=== PATIENT | male | born 1965 | race Caucasian/White ===

== ENCOUNTER 2018-02-22 12:14 | Inpatient (IN) | payer MEDICARE, MEDICAID ==
[2018-02-22] MEDS ORDERED: Ipratropium Neb 0.5 mg/2.5 mL UD HHN PRN (12:49)
[2018-02-22] MEDS ORDERED: Magnesium Hydroxide (MOM) 30 mL UDC PO PRN (12:49)
[2018-02-22] MEDS ORDERED: Sodium Chloride 0.9% 1,000 ML IV ONE (13:05)
--- NOTE | 2018-02-22 13:10 | ED Physician Chart ---
ED Chief Complaint/HPI - Patient Information Date Seen:: 02/22/18 Time Seen:: 12:45 Chief Complaint:: Weakness History of Present Illness:: onset x one day of weakness, dizziness, N/V, and vertigo; no report of trauma, H /As, neck pain, cough, C/P, SOB, Abd. Pain, A/D/C, fever, chills, or urinary s/s Allergies:: Allergies Allergy/AdvReac Type Severity Reaction Status Date / Time bee stings Allergy Unknown Uncoded 12/18/12 10:59 Vitals:: Vital Signs - 8 hr 02/22/18 12:46 Temp 98.3 F HR 93 RR 16 BP 102/64 O2 Sat % 96 Historian:: Patient, EMS Review:: Nurse's Note Reviewed, Old Chart Reviewed, EMS run form Reviewed ED Review of Systems - Review of Systems General/Constitutional: No fever, No chills, No weight loss, No weakness, No diaphoresis, No edema, No loss of appetite Skin: No skin lesions, No rash, No bruising Head: No headache, No light-headedness Eyes: No loss of vision, No pain, No diplopia ENT: No earache, No nasal drainage, No sore throat, No tinnitus Neck: No neck pain, No swelling, No thyromegaly, No stiffness, No mass noted Cardio Vascular: No chest pain, No palpitations, No PND, No orthopnea, No edema Pulmonary: No SOB, No cough, No sputum, No wheezing GI: Nausea, Vomiting, No pain, No melena, No hematochezia, No constipation, No hematemesis G/U: No dysuria, No frequency, No hematuria Musculoskeletal: No bone or joint pain, No back pain, No muscle pain Endocrine: No polyuria, No polydipsia Psychiatric: No prior psych history, No depression, No anxiety, No suicidal ideation, No homicidal ideation, No auditory hallucination, No visual hallucination Hematopoietic: No bruising, No lymphadenopathy Allergic/Immuno: No urticaria, No angioedema Neurological: No syncope, No focal symptoms, Weakness, No paresthesia, No headache, No seizure, Dizziness, Confusion, No vertigo ED Past Medical History - Past Medical History Obtainable: Yes Past Medical History: CVA/TIA, PUD/GERD, Arthritis, Dementia Family History: HTN Social History: Non Smoker, No Alcohol, No Drug Use, Single, Care Facility Surgical History: None Psychiatricy History: None Medication: Reviewed ED Physical Exam - Physical Examination General/Constitutional: Awake, Well-developed, well-nourished, Alert, No distress, GCS 15, Non-toxic appearing, Ambulatory Head: Atraumatic Eyes: Lids, conjuctiva normal, PERRL, EOMI Skin: Nl inspection, No rash, No skin lesions, No ecchymosis, Well hydrated, No lymphadenopathy ENMT: External ears, nose nl, TM canals nl, Nasal exam nl, Lips, teeth, gums nl , Oropharynx nl, Tonsils nl Neck: Nontender, Full ROM w/o pain, No JVD, No nuchal rigidity, No bruit, No mass, No stridor Respiratory: Nl effort/Exclusion, Clear to Auscultation, No Wheeze/Rhonchi/Rales Cardio Vascular: RRR, No murmur, gallop, rubs, NL S1 S2, Carotid/Femoral/Distal pulses equal bilaterally GI: No tenderness/rebounding/guarding, No organomegaly, No hernia, Normal BS's, Nondistended, No mass/bruits, No McBurney tenderness : No CVA tenderness Extremities: No tenderness or effusion, Full ROM, normal strength in all extremities, No edema, Normal digits & nails Neuro/Psych: Alert/oriented, DTR's symmetric, Normal sensory exam, Normal motor strength, Judgement/insight normal, Mood normal, Normal gait, No focal deficits Misc: Normal back, No paraspinal tenderness ED Labs/Radiology/EKG Results - Lab Results Comments:: U/A: + Pyuria - Radiology Results Comments:: NAD - EKG Interpretations EKG Time:: 13:24 Rate & Rhythm: 96; NSR Comments:: LVH; non-specific st-t changes ED Septic Shock - . Is Septic Shock (SBP<90, OR Lactate>4 mmol\L) present?: No - <6hrs of presentation: Vital Signs: Vital Signs - 8 hr 02/22/18 12:46 Temp 98.3 F HR 93 RR 16 BP 102/64 O2 Sat % 96 ED Reassessment (Disposition) - Reassessment Reassessment Condition:: Improved - Diagnosis Diagnosis:: Dx: Weakness; UTI; Sepsis; N/V; Gastritis; AGE: Dehydration - Aftercare/Follow up Instructions Aftercare/Follow-Up Instructions:: Counseled pt regarding lab results/diagnosis & need follow up, Counseled pt & family regarding lab results/diagnosis & need follow up - Patient Disposition Discharge/Transfer:: Acute Care w/in this hosp Accepting Physician:: Dr. Almanzar Time Called:: [id number] Time Responded:: 14:15 Admitted to:: Med/Surg Spoke to:: Dr. Almanzar Admitting Medical Physician:: Dr. Almanzar Condition at Disposition:: Stable, Improved
[2018-02-22 13:18] LABS: URINE MICROSCOPIC INDICATED? YES; URINE SOURCE CLEAN C
[2018-02-22 13:23] LABS: % EOSINOPHILS 3.4 % (0.0-5.0); % LYMPHOCYTES 19.5 % (20.0-50.0); % MONOCYTES 9.2 % (2.0-10.0); % NEUTROPHILS 67.9 % (40.0-80.0); EOSINOPHILE ABSOLUTE 0.3 Th/cmm (0.1-0.4); HEMATOCRIT 44.4 % (41.0-60); HEMOGLOBIN 14.5 gm/dL (12-16); LYMPHOCYTE ABSOLUTE 1.5 Th/cmm (1.5-3.0); MEAN CELL VOLUME 90.2 fl (80-99); MEAN CORPUSCULAR HEMOGLOBIN 29.5 pg (26.0-30.0); MEAN CORPUSCULAR HGB CONC 32.7 pg (28.0-36.0); MEAN PLATELET VOLUME 8.5 fl; MONOCYTE ABSOLUTE 0.7 Th/cmm (0.3-1.0); PLATELET COUNT 291 Th/cmm (150-400); RED BLOOD COUNT 4.92 Mil/cmm (4.30-5.70); RED CELL DISTRIBUTION WIDTH 12.7 % (11.5-20.0); WHITE BLOOD COUNT 7.5 Th/cmm (4.8-10.8)
[2018-02-22 13:32] LABS: URINE BILIRUBIN NEGATIVE (NEGATIVE); URINE BLOOD SMALL (NEGATIVE); URINE GLUCOSE (UA) NEGATIVE (NEGATIVE); URINE KETONE 15 mg/dL (NEGATIVE); URINE LEUKOCYTE ESTERASE SMALL (NEGATIVE); URINE NITRATE NEGATIVE (NEGATIVE); URINE PROTEIN TRACE mg/dL (NEGATIVE); URINE UROBILINOGEN 0.2 E.U./dL (0.2 - 1.0)
[2018-02-22 13:37] LABS: INR 1.05 (0.5-1.4); PROTHROMBIN TIME (TEST) 10.9 SECONDS (9.5-11.5)
[2018-02-22 13:43] LABS: ALB/GLOB RATIO 1.2 (1.0-1.8); ALBUMIN 4.2 gm/dL (4.2-5.5); ALKALINE PHOSPHATASE 94 U/L (34-104); ANION GAP 12.8 (7.0-16.0); BILIRUBIN,TOTAL 0.4 mg/dL (0.3-1.0); BUN - UREA NITROGEN 25 mg/dL (7-25); CARBON DIOXIDE 29.5 mEq/L (21.0-31.0); CHLORIDE 104 mEq/L (98-107); CHOLESTEROL 195 mg/dL (<200); CREATININE - SERUM 0.6 mg/dL (0.7-1.3); CREATININE KINASE 44 U/L (30-223); GFR AFRICAN-AMERICAN > 60.0 ml/min (>90); GFR NON AFRICAN-AMERICAN > 60.0 ml/min; GLUCOSE 90 mg/dL (70-105); HDL -HIGH DENSITY LIPOPROTEIN 56 mg/dL (23-92); POTASSIUM SERUM 4.3 mEq/L (3.5-5.1); SGOT 17 U/L (13-39); SGPT/ALT 18 U/L (7-52); SODIUM SERUM 142 mEq/L (136-145); TOTAL PROTEIN,SERUM 7.6 gm/dL (6.0-8.3); TRIGLYCERIDES 77 mg/dL (<150)
[2018-02-22 13:44] LABS: AMYLASE SERUM 60 U/L (29-103); LIPASE 20 U/L (11-82)
[2018-02-22 13:51] LABS: URINE CLARITY CLEAR (CLEAR); URINE COLOR YELLOW
[2018-02-22 13:54] LABS: URINE BACTERIA 4+ /hpf (NONE SEEN); URINE EPITHELIAL CELLS MODERATE /lpf (FEW)
[2018-02-22] MEDS ORDERED: cefTRIAXone 1 GM in Sodium Chloride 0.9% 50 ML IV ONE (14:11)
[2018-02-22] MEDS ORDERED: Lidocaine 2% 5mL Abboject IVP ONE ×2 (14:39→14:40)
--- NOTE | 2018-02-22 14:53 | History & Physical ---
ADMIT DATE: 02/22/2018 CHIEF COMPLAINT: Generalized weakness, nausea, and vomiting. HISTORY OF PRESENT ILLNESS: This is a 52-year-old male with history of mental retardation, cerebral palsy, and hypertension, comes with chronic constipation, admitted from Nursing Facility secondary to fever, chills, nausea, vomiting, not feeling well, not eating. The patient brought in the ER and admitted for further management. PAST MEDICAL HISTORY: As mentioned in history of present illness. PAST SURGICAL HISTORY: Unable to obtain from the patient. ALLERGIES: BEE STING. MEDICATIONS: Tylenol, Atrovent, Colace, amoxicillin, milk of magnesia, Pepcid, Os-Joesph, and vitamin D. FAMILY HISTORY: Noncontributory. SOCIAL HISTORY: The patient lives in intermediate. The patient requiring 24-hour total care. REVIEW OF SYSTEMS: This is limited secondary to patient's comatose. We will try to obtain more detailed review of system at a later date by talking to family members ____ number is [phone]. We will also try to get information from nursing staff at [facility] on number [phone] as well as from Dr. Locke. PHYSICAL EXAMINATION: VITAL SIGNS: Blood pressure 187/47, respiration 18, pulse 84, and temperature 98.3. GENERAL: Elderly male. NECK: Appears chronically ill. Bilateral temporal wasting. LUNGS: Equal breath sounds, few rhonchi. HEART: Regular rate and rhythm without appreciable murmur. ABDOMEN: Soft, globular. EXTREMITIES: Positive excoriation, atrophy contractures. NEUROLOGIC: Limited. LABORATORY DATA: WBC 7, hemoglobin 14, and platelets 291. Sodium 142, potassium 4.3, BUN 25, creatinine 0.6. UA ____ 4+ bacteria, positive nitrite and leukocyte esterase. ASSESSMENT AND PLAN: Urinary tract infection, failure to thrive, poor p.o. intake, dehydration, generalized weakness, mental retardation, cerebral palsy, hypertension. We will continue the patient on ____. We will follow the patient's urine C and S. Continue with current care. We will place the patient on aspiration precaution, deep vein thrombosis prophylaxis. JOB# [id number]
[2018-02-22] MEDS: D5-0.9%NS 1,000 ML IV SCH (17:01)
[2018-02-23] MEDS: D5-0.9%NS 1,000 ML IV SCH ×2 (03:20→18:33)
--- NOTE | 2018-02-23 04:28 | Consultation ---
DATE OF CONSULTATION: 02/22/2018 HISTORY OF PRESENT ILLNESS: This 52-year-old male was seen and examined at the courtesy of Dr. Almanzar. The patient was admitted here from snf with dehydration, UTI, dysphagia. The patient has history of multiple other problems including quadriplegia, contractures, seizures, microcephaly, mental retardation, history of congestive heart failure, anemia, history of rheumatic valvular disease, dysphagia, and urinary tract infection. No history available from the patient. PAST MEDICAL HISTORY, FAMILY HISTORY, SOCIAL HISTORY, REVIEW OF SYSTEMS: Not available from the patient. LABORATORY DATA: On reviewing the labs, urinalysis showed 25 WBCs, bacteria 4+. INR was 1.05, PTT 24.7, amylase 60, lipase 20. Sodium 142, potassium 4.3, chloride 104, CO2 29.5, BUN 90, creatinine 25. LDL cholesterol was 118, HDL 56, triglycerides 77, total cholesterol 195, CPK 44, troponin less than 0.01. Lactic acid 1.42. BNP 75.5. That is within normal limits. WBC 7.5, hemoglobin 14.5, hematocrit 44.4, platelet count is 291. Chest x-ray has shown sinus rhythm, PVC. Possible left atrial enlargement, possible LVH. PHYSICAL EXAMINATION: VITAL SIGNS: Heart rate was 83, blood pressure in the beginning was 148/100, then it came down to 98/63. SKIN: Normal. HEAD: Normocephalic. Eyes: Conjunctivae pink, no icterus in the eyes. Pupils reacting to light. NECK: There was no increased jugular venous distention, no thyromegaly, no lymphadenopathy. Carotids equal both sides. CHEST: Bilaterally symmetrical moved well with respiration. Respiratory movements equal both sides. Trachea is central. There is note to percussion. Breath sounds, few basilar rales. CARDIOVASCULAR SYSTEM: PMI not well localized. There is no positional thrill. No parasternal heave. S1 normal, S2 physiologic. Grade 2/6 ejection systolic murmur heard over the basal left sternal border. ABDOMEN: Soft, no tenderness, no rigidity, no guarding and no organomegaly. Bowel sounds normal. IMPRESSION: Dehydration, urinary tract infection, quadriplegia, seizures, microcephaly, mental retardation, congestive heart failure, anemia, history of rheumatic valvular disease or dysphagia. She will continue present management. Continue cardiac monitoring. PLAN: We will get a repeat EKG. We will get echocardiogram to evaluate left ventricular function and valvular structure and also get TSH. Further recommendation will be made depending on the list of the tests available. JOB# [id number]
[2018-02-23 06:54] LABS: CHOLESTEROL 168 mg/dL (<200); HDL -HIGH DENSITY LIPOPROTEIN 45 mg/dL (23-92); TRIGLYCERIDES 66 mg/dL (<150)
--- NOTE | 2018-02-23 08:05 | Diagnostic Imaging Report ---
CHEST X-RAY: AP view INDICATION: pain COMPARISON: None FINDINGS: Exam is limited due to body habitus and scoliosis. Multilevel spinal fixation hardware is noted. There is increased interstitial lung markings. No definite focal consolidation or effusions. Cardiomegaly is noted. Nonspecific gas-filled loops of bowel the left upper quadrant are noted. IMPRESSION: Limited exam due to body habitus and spinal scoliosis. There is increased interstitial lung markings. A mild degree of congestion cannot be excluded. No focal consolidation identified Postsurgical changes of the spine with severe scoliosis.
[2018-02-23] MEDS: Ferrous Sulfate 325 MG TAB PO SCH (09:36)
[2018-02-23] MEDS: cefTRIAXone 1 GM in Sodium Chloride 0.9% 50 ML IV SCH (09:50)
--- NOTE | 2018-02-23 14:57 | Internal Medicine Prog Note ---
Internal Medicine Subjective - Subjective Service Date: 02/23/18 (patient with speech therapist unable to tolerate swallowing patient vomits. Per nursing staff earlier this morning patient had x2 episodes of vomiting. ) Patient seen and examined:: with staff Patient is:: awake Per staff patient has:: poor oral intake Internal Medicine Objective - Results Result Diagrams: 02/22/18 12:55 02/22/18 12:55 Recent Labs: Laboratory Last Values WBC 7.5 Th/cmm (4.8-10.8) 02/22/18 12:55 RBC 4.92 Mil/cmm (4.30-5.70) 02/22/18 12:55 Hgb 14.5 gm/dL (12-16) 02/22/18 12:55 Hct 44.4 % (41.0-60) 02/22/18 12:55 MCV 90.2 fl (80-99) 02/22/18 12:55 MCH 29.5 pg (26.0-30.0) 02/22/18 12:55 MCHC Differential 32.7 pg (28.0-36.0) 02/22/18 12:55 RDW 12.7 % (11.5-20.0) 02/22/18 12:55 Plt Count 291 Th/cmm (150-400) 02/22/18 12:55 MPV 8.5 fl 02/22/18 12:55 Neutrophils % 67.9 % (40.0-80.0) 02/22/18 12:55 Lymphocytes % 19.5 % (20.0-50.0) L 02/22/18 12: Monocytes % 9.2 % (2.0-10.0) 02/22/18 12:55 Eosinophils % 3.4 % (0.0-5.0) 02/22/18 12: Basophils % 0.0 % (0.0-2.0) 02/22/18 12:55 PT 10.9 SECONDS (9.5-11.5) 02/22/18 12:55 INR 1.05 (0.5-1.4) 02/22/18 12:55 PTT (Actin FS) 24.7 SECONDS (26.0-38.0) L 02/22/18 12:55 Sodium 142 mEq/L (136-145) 02/22/18 12:55 Potassium 4.3 mEq/L (3.5-5.1) 02/22/18 12:55 Chloride 104 mEq/L (98-107) 02/22/18 12:55 Carbon Dioxide 29.5 mEq/L (21.0-31.0) 02/22/18 12:55 Anion Gap 12.8 (7.0-16.0) 02/22/18 12:55 BUN 25 mg/dL (7-25) 02/22/18 12:55 Creatinine 0.6 mg/dL (0.7-1.3) L 02/22/18 12:55 Est GFR ( Amer) > 60.0 ml/min (>90) 02/22/18 12:55 Est GFR (Non-Af Amer) > 60.0 ml/min 02/22/18 12:55 BUN/Creatinine Ratio 41.7 02/22/18 12:55 Glucose 90 mg/dL (70-105) 02/22/18 12:55 Whole Bld Lactic Acid 1.42 mmol/L (0.60-1.99) 02/22/18 12:55 Calcium 10.0 mg/dL (8.6-10.3) 02/22/18 12:55 Total Bilirubin 0.4 mg/dL (0.3-1.0) 02/22/18 12:55 AST 17 U/L (13-39) 02/22/18 12:55 ALT 18 U/L (7-52) 02/22/18 12:55 Alkaline Phosphatase 94 U/L (34-104) 02/22/18 12:55 Creatine Kinase 44 U/L (30-223) 02/22/18 12:55 Troponin I < 0.01 ng/mL (0.01-0.05) L 02/22/18 12:55 B-Natriuretic Peptide 75.5 pg/mL (5.0-100.0) 02/22/18 12:55 Total Protein 7.6 gm/dL (6.0-8.3) 02/22/18 12:55 Albumin 4.2 gm/dL (4.2-5.5) 02/22/18 12:55 Globulin 3.4 gm/dL 02/22/18 12:55 Albumin/Globulin Ratio 1.2 (1.0-1.8) 02/22/18 12:55 Triglycerides 66 mg/dL (<150) 02/23/18 05:50 Cholesterol 168 mg/dL (<200) 02/23/18 05:50 LDL Cholesterol Direct 103 mg/dL (75-193) 02/23/18 05:50 HDL Cholesterol 45 mg/dL (23-92) 02/23/18 05:50 Amylase 60 U/L (29-103) 02/22/18 12:55 Lipase 20 U/L (11-82) 02/22/18 12:55 TSH 0.66 uIU/ml (0.34-5.60) 02/23/18 05:50 Urine Source CLEAN C 02/22/18 13:00 Urine Color YELLOW 02/22/18 13:00 Urine Clarity CLEAR (CLEAR) 02/22/18 13:00 Urine pH 6.0 (4.6 - 8.0) 02/22/18 13:00 Ur Specific Mineral 1.025 (1.005-1.030) 02/22/18 13:00 Urine Protein TRACE mg/dL (NEGATIVE) 02/22/18 13:00 Urine Glucose (UA) NEGATIVE mg/dL (NEGATIVE) 02/22/18 13:00 Urine Ketones 15 mg/dL (NEGATIVE) H 02/22/18 13:00 Urine Blood SMALL (NEGATIVE) H 02/22/18 13:00 Urine Nitrate NEGATIVE (NEGATIVE) 02/22/18 13:00 Urine Bilirubin NEGATIVE (NEGATIVE) 02/22/18 13:00 Urine Urobilinogen 0.2 E.U./dL (0.2 - 1.0) 02/22/18 13:00 Ur Leukocyte Esterase SMALL (NEGATIVE) H 02/22/18 13:00 Urine RBC 2-5 /hpf (0-5) H 02/22/18 13:00 Urine WBC 10-25 /hpf (0-5) H 02/22/18 13:00 Ur Epithelial Cells MODERATE /lpf (FEW) 02/22/18 13:00 Urine Bacteria 4+ /hpf (NONE SEEN) H 02/22/18 13:00 - Physical Exam Vitals and I&O: Vital Signs Temp 100.7 F 02/23/18 08:00 Pulse 96 02/23/18 09:37 Resp 18 02/23/18 08:00 BP 113/60 02/23/18 09:37 Pulse Ox 96 02/23/18 08:00 Intake & Output 02/22/18 02/23/18 02/23/18 18:59 06:59 18:59 Intake Total 885.333 50 Output Total 0 Balance 885.333 50 Weight (lbs) 133 lb 11.2 oz Intake: Intake, IV Amount 825.333 50 D5-0.9%Ns 1,000 ml @ 80 825.333 mls/hr IV .[id number] [facility] Rx #:[id number] cefTRIAXone 1 gm In 50 Sodium Chloride 0.9% 50 ml @ 100 mls/hr IV Q24HR [facility] Rx#:[id number] Oral 0 Other 60 Output: Stool 0 Other: # Voids 3 # Bowel Movements 0 Weight Source Bedscale Active Medications: Current Medications Acetaminophen (Tylenol) 650 mg PO Q4HR PRN PRN Reason: Pain or Fever >101 Last Admin: 02/23/18 09:35 Dose: 650 mg Albuterol/Ipratropium (Duoneb Neb) 3 ml HHN Q4HRT [facility] Stop: 04/24/18 14:59 Aspirin (Ecotrin) 81 mg PO DAILY [facility] Stop: 04/24/18 08:59 Last Admin: 02/23/18 09:36 Dose: 81 mg Calcium Carbonate (Os-Joesph) 500 mg PO TID [facility] Stop: 04/23/18 13:59 Last Admin: 02/23/18 14:54 Dose: Not Given Docusate Sodium (Colace) 250 mg PO BID [facility] Stop: 04/23/18 16:59 Last Admin: 02/23/18 09:36 Dose: 250 mg Enalapril Maleate (Vasotec) 20 mg PO BID [facility] Stop: 04/23/18 16:59 Last Admin: 02/23/18 09:37 Dose: Not Given Famotidine (Pepcid) 20 mg PO BID [facility] Stop: 04/23/18 16:59 Last Admin: 02/23/18 09:36 Dose: 20 mg Ferrous Sulfate (Iron) 325 mg PO DAILY [facility] Stop: 04/24/18 08:59 Last Admin: 02/23/18 09:36 Dose: 325 mg Ceftriaxone Sodium 1 gm/ (Sodium Chloride) 50 mls @ 100 mls/hr IV Q24HR [facility] Stop: 04/24/18 08:59 Last Infusion: 02/23/18 11:26 Dose: Infused Dextrose/Sodium Chloride (D5-0.9%Ns) 1,000 mls @ 80 mls/hr IV .[id number] [facility] Stop: 04/23/18 14:14 Last Admin: 02/23/18 03:20 Dose: 80 mls/hr Ipratropium [place] (Atrovent Neb 0.5mg/2.5ml) 0.5 mg HHN Q8HRT PRN PRN Reason: Shortness of Breath Stop: 04/23/18 12:48 Magnesium Hydroxide (Milk Of Magnesia) 30 ml PO BID PRN PRN Reason: Constipation Stop: 04/23/18 12:48 Ondansetron HCl (Zofran) 4 mg IV Q8H PRN PRN Reason: Nausea / Vomiting Stop: 04/24/18 14:53 Pantoprazole Sodium (Protonix) 40 mg IVP DAILY [facility] Stop: 04/25/18 08:59 Vitamin D (Vitamin D) 400 iu PO DAILY [facility] Stop: 04/24/18 08:59 Last Admin: 02/23/18 09:36 Dose: 400 iu General: weak, alert (nonverbal) HEENT: NC/AT, PERRLA Neck: Supple Lungs: congested Cardiovascular: RRR, Normal S1, Normal S2, without murmur Abdomen: non-tender, positive bowel sound Extremities: excoriation Neurological: unable to follow command - Procedures Procedures: Procedures Procedure Code Date APPLICATION LOWER LEG SPLINT 43185 02/28/05 APPLICATION OF SPLINT 93.54 02/28/05 INSERT PICC CATH [id number] 03/08/10 VENOUS CATHETERIZATION NEC 38.93 03/08/10 Internal Medicine Assmt/Plan - Assessment Assessment: acute uti failure to thrive poor oral intake acute dehydration intractable vomiting generalized weakness MR cp htn - Plan Plan: keep NPO for now except meds KUB to be done will add protonix aspiration precautions cbc/bmp in am continue current plan of care
[2018-02-23] MEDS: Albuterol/Ipratropium Neb 3 ML AERS HHN SCH ×3 (15:04→22:12)
[2018-02-24] MEDS: Albuterol/Ipratropium Neb 3 ML AERS HHN SCH ×6 (03:41→22:27)
[2018-02-24] MEDS: D5-0.9%NS 1,000 ML IV SCH (06:35)
[2018-02-24 06:41] LABS: ANION GAP 9.3 (7.0-16.0); BUN - UREA NITROGEN 19 mg/dL (7-25); CARBON DIOXIDE 28.1 mEq/L (21.0-31.0); CHLORIDE 112 mEq/L (98-107); CREATININE - SERUM 0.5 mg/dL (0.7-1.3); GFR AFRICAN-AMERICAN > 60.0 ml/min (>90); GFR NON AFRICAN-AMERICAN > 60.0 ml/min; GLUCOSE 106 mg/dL (70-105); MAGNESIUM 1.9 mg/dL (1.9-2.7); PHOSPHOROUS 2.3 mg/dL (2.5-5.0); POTASSIUM SERUM 3.4 mEq/L (3.5-5.1); SODIUM SERUM 146 mEq/L (136-145)
[2018-02-24 06:53] LABS: % BASOPHILS 0.1 % (0.0-2.0); % EOSINOPHILS 2.1 % (0.0-5.0); % LYMPHOCYTES 12.5 % (20.0-50.0); % MONOCYTES 10.1 % (2.0-10.0); % NEUTROPHILS 75.2 % (40.0-80.0); EOSINOPHILE ABSOLUTE 0.1 Th/cmm (0.1-0.4); HEMATOCRIT 36.8 % (41.0-60); HEMOGLOBIN 11.9 gm/dL (12-16); LYMPHOCYTE ABSOLUTE 0.8 Th/cmm (1.5-3.0); MEAN CELL VOLUME 89.6 fl (80-99); MEAN CORPUSCULAR HEMOGLOBIN 28.9 pg (26.0-30.0); MEAN CORPUSCULAR HGB CONC 32.2 pg (28.0-36.0); MEAN PLATELET VOLUME 8.6 fl; MONOCYTE ABSOLUTE 0.7 Th/cmm (0.3-1.0); NEUTROPHILE ABSOLUTE 5.1 Th/cmm (1.8-8.0); PLATELET COUNT 213 Th/cmm (150-400); RED BLOOD COUNT 4.11 Mil/cmm (4.30-5.70); RED CELL DISTRIBUTION WIDTH 12.5 % (11.5-20.0); WHITE BLOOD COUNT 6.7 Th/cmm (4.8-10.8)
--- NOTE | 2018-02-24 07:48 | Diagnostic Imaging Report ---
Portable chest x-ray HISTORY: Shortness of breath Compared with prior exam of February 22, 2018, there is marked cardiomegaly. There does appear to be degree of pulmonary vascular redistribution consistent with cardiac decompensation. No focal processes are seen. Again noted is a severe scoliosis and surgical changes. IMPRESSION: 1. Persistent marked cardiomegaly along with changes suggesting a degree of congestive heart failure. No jackson pulmonary edema or other focal processes.
--- NOTE | 2018-02-24 07:52 | Diagnostic Imaging Report ---
KUB abdominal film HISTORY: Pain The exam demonstrates several mildly dilated loops of bowel of questionable significance. No free intraperitoneal air. Shipley rods traverse the spine along with a scoliosis and degenerative changes. IMPRESSION: 1. Nonspecific bowel gas pattern
[2018-02-24] MEDS: Ferrous Sulfate 325 MG TAB PO SCH (09:18)
[2018-02-24] MEDS: cefTRIAXone 1 GM in Sodium Chloride 0.9% 50 ML IV SCH (09:18)
[2018-02-24] MEDS ORDERED: Potassium Chloride 20 mEq ER Tab PO ONE (13:10)
--- NOTE | 2018-02-24 13:10 | Internal Medicine Prog Note ---
Internal Medicine Subjective - Subjective Service Date: 02/24/18 (no episodes of any vomiting today) Patient seen and examined:: with staff Patient is:: awake Per staff patient has:: poor oral intake, tolerating meds Internal Medicine Objective - Results Result Diagrams: 02/24/18 05:40 02/24/18 05:40 Recent Labs: Laboratory Last Values WBC 6.7 Th/cmm (4.8-10.8) 02/24/18 05:40 RBC 4.11 Mil/cmm (4.30-5.70) L 02/24/18 05:40 Hgb 11.9 gm/dL (12-16) L 02/24/18 05:40 Hct 36.8 % (41.0-60) L 02/24/18 05:40 MCV 89.6 fl (80-99) 02/24/18 05:40 MCH 28.9 pg (26.0-30.0) 02/24/18 05:40 MCHC Differential 32.2 pg (28.0-36.0) 02/24/18 05:40 RDW 12.5 % (11.5-20.0) 02/24/18 05:40 Plt Count 213 Th/cmm (150-400) 02/24/18 05:40 MPV 8.6 fl 02/24/18 05:40 Neutrophils % 75.2 % (40.0-80.0) 02/24/18 05:40 Lymphocytes % 12.5 % (20.0-50.0) L 02/24/18 05:40 Monocytes % 10.1 % (2.0-10.0) H 02/24/18 05:40 Eosinophils % 2.1 % (0.0-5.0) 02/24/18 05:40 Basophils % 0.1 % (0.0-2.0) 02/24/18 05:40 PT 10.9 SECONDS (9.5-11.5) 02/22/18 12:55 INR 1.05 (0.5-1.4) 02/22/18 12:55 PTT (Actin FS) 24.7 SECONDS (26.0-38.0) L 02/22/18 12:55 Sodium 146 mEq/L (136-145) H 02/24/18 05:40 Potassium 3.4 mEq/L (3.5-5.1) L 02/24/18 05:40 Chloride 112 mEq/L (98-107) H 02/24/18 05:40 Carbon Dioxide 28.1 mEq/L (21.0-31.0) 02/24/18 05:40 Anion Gap 9.3 (7.0-16.0) 02/24/18 05:40 BUN 19 mg/dL (7-25) 02/24/18 05:40 Creatinine 0.5 mg/dL (0.7-1.3) L 02/24/18 05:40 Est GFR ( Amer) > 60.0 ml/min (>90) 02/24/18 05:40 Est GFR (Non-Af Amer) > 60.0 ml/min 02/24/18 05:40 BUN/Creatinine Ratio 38.0 02/24/18 05:40 Glucose 106 mg/dL (70-105) H 02/24/18 05:40 Whole Bld Lactic Acid 1.42 mmol/L (0.60-1.99) 02/22/18 12:55 Calcium 9.0 mg/dL (8.6-10.3) 02/24/18 05:40 Phosphorus 2.3 mg/dL (2.5-5.0) L 02/24/18 05:40 Magnesium 1.9 mg/dL (1.9-2.7) 02/24/18 05:40 Total Bilirubin 0.4 mg/dL (0.3-1.0) 02/22/18 12:55 AST 17 U/L (13-39) 02/22/18 12:55 ALT 18 U/L (7-52) 02/22/18 12:55 Alkaline Phosphatase 94 U/L (34-104) 02/22/18 12:55 Creatine Kinase 44 U/L (30-223) 02/22/18 12:55 Troponin I < 0.01 ng/mL (0.01-0.05) L 02/22/18 12:55 B-Natriuretic Peptide 120.0 pg/mL (5.0-100.0) H 02/24/18 05:40 Total Protein 7.6 gm/dL (6.0-8.3) 02/22/18 12:55 Albumin 4.2 gm/dL (4.2-5.5) 02/22/18 12:55 Globulin 3.4 gm/dL 02/22/18 12:55 Albumin/Globulin Ratio 1.2 (1.0-1.8) 02/22/18 12:55 Triglycerides 66 mg/dL (<150) 02/23/18 05:50 Cholesterol 168 mg/dL (<200) 02/23/18 05:50 LDL Cholesterol Direct 103 mg/dL (75-193) 02/23/18 05:50 HDL Cholesterol 45 mg/dL (23-92) 02/23/18 05:50 Amylase 60 U/L (29-103) 02/22/18 12:55 Lipase 20 U/L (11-82) 02/22/18 12:55 TSH 0.66 uIU/ml (0.34-5.60) 02/23/18 05:50 Urine Source CLEAN C 02/22/18 13:00 Urine Color YELLOW 02/22/18 13:00 Urine Clarity CLEAR (CLEAR) 02/22/18 13:00 Urine pH 6.0 (4.6 - 8.0) 02/22/18 13:00 Ur Specific [place] 1.025 (1.005-1.030) 02/22/18 13:00 Urine Protein TRACE mg/dL (NEGATIVE) 02/22/18 13:00 Urine Glucose (UA) NEGATIVE mg/dL (NEGATIVE) 02/22/18 13:00 Urine Ketones 15 mg/dL (NEGATIVE) H 02/22/18 13:00 Urine Blood SMALL (NEGATIVE) H 02/22/18 13:00 Urine Nitrate NEGATIVE (NEGATIVE) 02/22/18 13:00 Urine Bilirubin NEGATIVE (NEGATIVE) 02/22/18 13:00 Urine Urobilinogen 0.2 E.U./dL (0.2 - 1.0) 02/22/18 13:00 Ur Leukocyte Esterase SMALL (NEGATIVE) H 02/22/18 13:00 Urine RBC 2-5 /hpf (0-5) H 02/22/18 13:00 Urine WBC 10-25 /hpf (0-5) H 02/22/18 13:00 Ur Epithelial Cells MODERATE /lpf (FEW) 02/22/18 13:00 Urine Bacteria 4+ /hpf (NONE SEEN) H 02/22/18 13:00 - Physical Exam Vitals and I&O: Vital Signs Temp 98.3 F 02/24/18 08:00 Pulse 87 02/24/18 12:33 Resp 18 02/24/18 12:33 BP 130/48 02/24/18 09:19 Pulse Ox 99 02/24/18 12:33 Intake & Output 02/23/18 02/24/18 02/24/18 18:59 06:59 18:59 Intake Total 1530 962.667 Balance 1530 962.667 Weight (lbs) 133 lb 11.2 oz 142 lb 12.8 oz Intake: Intake, IV Amount 1050 962.667 D5-0.9%Ns 1,000 ml @ 80 1000 962.667 mls/hr IV .[id number] [facility] Rx #:[id number] cefTRIAXone 1 gm In 50 Sodium Chloride 0.9% 50 ml @ 100 mls/hr IV Q24HR [facility] Rx#:[id number] Oral 480 Other: # Voids 4 1 # Bowel Movements 0 Weight Source Estimated Bedscale Active Medications: Current Medications Acetaminophen (Tylenol) 650 mg PO Q4HR PRN PRN Reason: Pain or Fever >101 Last Admin: 02/23/18 09:35 Dose: 650 mg Albuterol/Ipratropium (Duoneb Neb) 3 ml HHN Q4HRT [facility] Stop: 04/24/18 14:59 Last Admin: 02/24/18 12:33 Dose: 3 ml Aspirin (Ecotrin) 81 mg PO DAILY [facility] Stop: 04/24/18 08:59 Last Admin: 02/24/18 09:25 Dose: 81 mg Calcium Carbonate (Os-Tangela) 500 mg PO TID [facility]I Stop: 04/23/18 13:59 Last Admin: 02/24/18 09:19 Dose: 500 mg Docusate Sodium (Colace) 250 mg PO BID [facility] Stop: 04/23/18 16:59 Last Admin: 02/24/18 09:18 Dose: 250 mg Enalapril Maleate (Vasotec) 20 mg PO BID [facility] Stop: 04/23/18 16:59 Last Admin: 02/24/18 09:19 Dose: Not Given Famotidine (Pepcid) 20 mg PO BID [facility] Stop: 04/23/18 16:59 Last Admin: 02/24/18 09:18 Dose: 20 mg Ferrous Sulfate (Iron) 325 mg PO DAILY [facility] Stop: 04/24/18 08:59 Last Admin: 02/24/18 09:18 Dose: 325 mg Ceftriaxone Sodium 1 gm/ (Sodium Chloride) 50 mls @ 100 mls/hr IV Q24HR [facility] Stop: 04/24/18 08:59 Last Admin: 02/24/18 09:18 Dose: 100 mls/hr Dextrose/Sodium Chloride (D5-0.9%Ns) 1,000 mls @ 80 mls/hr IV .[id number] [facility] Stop: 04/23/18 14:14 Last Admin: 02/24/18 06:35 Dose: 80 mls/hr Ipratropium [place] (Atrovent Neb 0.5mg/2.5ml) 0.5 mg HHN Q8HRT PRN PRN Reason: Shortness of Breath Stop: 04/23/18 12:48 Magnesium Hydroxide (Milk Of Magnesia) 30 ml PO BID PRN PRN Reason: Constipation Stop: 04/23/18 12:48 Ondansetron HCl (Zofran) 4 mg IV Q8H PRN PRN Reason: Nausea / Vomiting Stop: 04/24/18 14:53 Pantoprazole Sodium (Protonix) 40 mg IVP DAILY [facility] Stop: 04/25/18 08:59 Last Admin: 02/24/18 09:19 Dose: 40 mg Vitamin D (Vitamin D) 400 iu PO DAILY [facility] Stop: 04/24/18 08:59 Last Admin: 02/24/18 09:18 Dose: 400 iu General: weak, alert (nonverbal) HEENT: NC/AT, PERRLA Neck: Supple Lungs: congested Cardiovascular: RRR, Normal S1, Normal S2, without murmur Abdomen: non-tender, positive bowel sound Extremities: excoriation Neurological: unable to follow command - Procedures Procedures: Procedures Procedure Code Date APPLICATION LOWER LEG SPLINT 69192 02/28/05 APPLICATION OF SPLINT 93.54 02/28/05 INSERT PICC CATH 61392 03/08/10 VENOUS CATHETERIZATION NEC 38.93 03/08/10 Internal Medicine Assmt/Plan - Assessment Assessment: acute uti failure to thrive poor oral intake acute dehydration intractable vomiting generalized weakness MR cp htn - Plan Plan: continue with ppi supplemental oxygen and inhalation tx aspiration precautions cbc/bmp in am continue current plan of care Nutritional Asmnt/Malnutr-PDOC - Dietary Evaluation Malnutrition Findings (Please click <Entered> for more info): Nutritional Asmnt/Malnutrition Start: 02/23/18 15: 18 Text: Status: Complete Freq: Document 02/23/18 15:18 LCAVERYG (Rec: 02/23/18 15:26 LCHENG [email or web address]) Nutritional Asmnt/Malnutrition Patient General Information Nutritional Screening High Risk Diagnosis dehydration, FTT, UTI Pertinent Medical Hx/Surgical Hx mental retardation, cerebral palsy, HTN, chronic constipation Subjective Information Per H&P, pt had N/V, not eating for few days. Per [employer] OB[employer] CONSULTANT, pt had emesis during meals. pt failed swallow eval and now on NPO. Pt seen lyin in bed at time of visit, not able to communicate. Current Diet Order/ Nutrition Support NPO Pertinent Medications os-tangela, D5-0.9%ns, colace, iron, protonix, vit D Pertinent Labs 02/22 Cr 0.6 Nutritional Hx/Data Height 5 ft 7 in Height (Calculated Centimeters) 170.2 Current Weight (lbs) 134 lb Weight (Calculated Kilograms) 60.8 Weight (Calculated Grams) 51233.4 [place] Body Weight 148 Body Mass Index (BMI) 20.9 Weight Status Approriate GI Symptoms GI Symptoms Vomitting Last BM 0 Difficult in: None Skin Integrity/Comment: rash Current %PO Poor (25-49%) Estimated Nutritional Goals BEE in Kcals: Using Current wt Calories/Kcals/Kg 25-30 Kcals Calculated 6397-8235 Protein: Using Current wt Protein g/k-1.2 Protein Calculated 61-73 Fluid: ml 1525-1830ml (1ml/kcal) Nutritional Problem 1. Problem Problem inadequate food intake Etiology pt vomiting food Signs/Symptoms: PO intake<50% and pt now on NPO Malnutrition Alert Protein-Calorie Malnutrition N/A Is there a minimum of two criteria No selected? Query Text:Check all the applicable criteria. A minimum of two criteria are recommended for diagnosis of either severe or non-severe malnutrition. Intervention/Recommendation Comments 1. Monitor NPO status. Consider alternative nutrition route to meet nutritional needs. 2. Monitor wt, labs and skin integrity 3. F/U as high risk in 2 days, 02/25 Expected Outcomes/Goals Expected Outcomes/Goals 1. Pt to meet at least 75% of nutritional needs. 2. Wt stability, skin to remain intact, labs to approach WNL.
[2018-02-24] MEDS ORDERED: Fleet Enema 135 mL RC PRN (13:14)
[2018-02-24] MEDS ORDERED: D5-0.45NS 1,000 ML IV SCH (13:15)
[2018-02-24] MEDS ORDERED: LACTOBACILLUS ACIDOPHILUS PO SCH (14:00)
[2018-02-24] MEDS: Lactobacillus Rhamnosus GG 15 Billion CFU CAP.SPRINK PO SCH ×2 (15:11→20:34)
[2018-02-25] MEDS: Albuterol/Ipratropium Neb 3 ML AERS HHN SCH ×4 (02:48→15:18)
[2018-02-25 06:27] LABS: EOSINOPHILE ABSOLUTE 0.2 Th/cmm (0.1-0.4); HEMATOCRIT 35.3 % (41.0-60); HEMOGLOBIN 11.7 gm/dL (12-16); LYMPHOCYTE ABSOLUTE 0.9 Th/cmm (1.5-3.0); MEAN CELL VOLUME 89.8 fl (80-99); MEAN CORPUSCULAR HEMOGLOBIN 29.7 pg (26.0-30.0); MEAN PLATELET VOLUME 8.4 fl; MONOCYTE ABSOLUTE 0.8 Th/cmm (0.3-1.0); NEUTROPHILE ABSOLUTE 2.6 Th/cmm (1.8-8.0); PLATELET COUNT 219 Th/cmm (150-400); RED BLOOD COUNT 3.93 Mil/cmm (4.30-5.70); RED CELL DISTRIBUTION WIDTH 12.4 % (11.5-20.0); WHITE BLOOD COUNT 4.5 Th/cmm (4.8-10.8)
[2018-02-25 06:31] LABS: % BASOPHILS 0.1 % (0.0-2.0); % EOSINOPHILS 4.7 % (0.0-5.0); % LYMPHOCYTES 19.8 % (20.0-50.0); % MONOCYTES 17.2 % (2.0-10.0); % NEUTROPHILS 58.2 % (40.0-80.0)
[2018-02-25 06:33] LABS: ANION GAP 10.3 (7.0-16.0); BUN - UREA NITROGEN 14 mg/dL (7-25); CALCIUM SERUM 9.2 mg/dL (8.6-10.3); CARBON DIOXIDE 29.1 mEq/L (21.0-31.0); CHLORIDE 110 mEq/L (98-107); CREATININE - SERUM 0.5 mg/dL (0.7-1.3); GFR AFRICAN-AMERICAN > 60.0 ml/min (>90); GFR NON AFRICAN-AMERICAN > 60.0 ml/min; GLUCOSE 100 mg/dL (70-105); POTASSIUM SERUM 3.4 mEq/L (3.5-5.1); SODIUM SERUM 146 mEq/L (136-145)
[2018-02-25] MEDS: Lactobacillus Rhamnosus GG 15 Billion CFU CAP.SPRINK PO SCH ×2 (09:14→13:36)
[2018-02-25] MEDS: Ferrous Sulfate 325 MG TAB PO SCH (09:14)
[2018-02-25] MEDS: cefTRIAXone 1 GM in Sodium Chloride 0.9% 50 ML IV SCH (09:33)
[2018-02-25] MEDS ORDERED: Probiotic Screen MC PRN (10:58)
[2018-02-25] MEDS ORDERED: Potassium Chloride 20 mEq ER Tab PO ONE (13:01)
--- NOTE | 2018-02-25 13:36 | Internal Medicine Prog Note ---
Internal Medicine Subjective - Subjective Service Date: 02/25/18 ([facility] [id number]) Patient is:: awake Per staff patient has:: poor oral intake, tolerating meds Internal Medicine Objective - Results Result Diagrams: 02/25/18 05:30 02/25/18 05:30 Recent Labs: Laboratory Last Values WBC 4.5 Th/cmm (4.8-10.8) L 02/25/18 05:30 RBC 3.93 Mil/cmm (4.30-5.70) L 02/25/18 05:30 Hgb 11.7 gm/dL (12-16) L 02/25/18 05:30 Hct 35.3 % (41.0-60) L 02/25/18 05:30 MCV 89.8 fl (80-99) 02/25/18 05:30 MCH 29.7 pg (26.0-30.0) 02/25/18 05:30 MCHC Differential 33.0 pg (28.0-36.0) 02/25/18 05:30 RDW 12.4 % (11.5-20.0) 02/25/18 05:30 Plt Count 219 Th/cmm (150-400) 02/25/18 05:30 MPV 8.4 fl 02/25/18 05:30 Neutrophils % 58.2 % (40.0-80.0) 02/25/18 05:30 Lymphocytes % 19.8 % (20.0-50.0) L 02/25/18 05:30 Monocytes % 17.2 % (2.0-10.0) H 02/25/18 05:30 Eosinophils % 4.7 % (0.0-5.0) 02/25/18 05:30 Basophils % 0.1 % (0.0-2.0) 02/25/18 05:30 PT 10.9 SECONDS (9.5-11.5) 02/22/18 12:55 INR 1.05 (0.5-1.4) 02/22/18 12:55 PTT (Actin FS) 24.7 SECONDS (26.0-38.0) L 02/22/18 12:55 Sodium 146 mEq/L (136-145) H 02/25/18 05:30 Potassium 3.4 mEq/L (3.5-5.1) L 02/25/18 05:30 Chloride 110 mEq/L (98-107) H 02/25/18 05:30 Carbon Dioxide 29.1 mEq/L (21.0-31.0) 02/25/18 05:30 Anion Gap 10.3 (7.0-16.0) 02/25/18 05:30 BUN 14 mg/dL (7-25) 02/25/18 05:30 Creatinine 0.5 mg/dL (0.7-1.3) L 02/25/18 05:30 Est GFR ( Amer) > 60.0 ml/min (>90) 02/25/18 05:30 Est GFR (Non-Af Amer) > 60.0 ml/min 02/25/18 05:30 BUN/Creatinine Ratio 28.0 02/25/18 05:30 Glucose 100 mg/dL (70-105) 02/25/18 05:30 Whole Bld Lactic Acid 1.42 mmol/L (0.60-1.99) 02/22/18 12:55 Calcium 9.2 mg/dL (8.6-10.3) 02/25/18 05:30 Phosphorus 2.3 mg/dL (2.5-5.0) L 02/24/18 05:40 Magnesium 1.9 mg/dL (1.9-2.7) 02/24/18 05:40 Total Bilirubin 0.4 mg/dL (0.3-1.0) 02/22/18 12:55 AST 17 U/L (13-39) 02/22/18 12:55 ALT 18 U/L (7-52) 02/22/18 12:55 Alkaline Phosphatase 94 U/L (34-104) 02/22/18 12:55 Creatine Kinase 44 U/L (30-223) 02/22/18 12:55 Troponin I < 0.01 ng/mL (0.01-0.05) L 02/22/18 12:55 B-Natriuretic Peptide 120.0 pg/mL (5.0-100.0) H 02/24/18 05:40 Total Protein 7.6 gm/dL (6.0-8.3) 02/22/18 12:55 Albumin 4.2 gm/dL (4.2-5.5) 02/22/18 12:55 Globulin 3.4 gm/dL 02/22/18 12:55 Albumin/Globulin Ratio 1.2 (1.0-1.8) 02/22/18 12:55 Triglycerides 66 mg/dL (<150) 02/23/18 05:50 Cholesterol 168 mg/dL (<200) 02/23/18 05:50 LDL Cholesterol Direct 103 mg/dL (75-193) 02/23/18 05:50 HDL Cholesterol 45 mg/dL (23-92) 02/23/18 05:50 Amylase 60 U/L (29-103) 02/22/18 12:55 Lipase 20 U/L (11-82) 02/22/18 12:55 TSH 0.66 uIU/ml (0.34-5.60) 02/23/18 05:50 Urine Source CLEAN C 02/22/18 13:00 Urine Color YELLOW 02/22/18 13:00 Urine Clarity CLEAR (CLEAR) 02/22/18 13:00 Urine pH 6.0 (4.6 - 8.0) 02/22/18 13:00 Ur Specific [place] 1.025 (1.005-1.030) 02/22/18 13:00 Urine Protein TRACE mg/dL (NEGATIVE) 02/22/18 13:00 Urine Glucose (UA) NEGATIVE mg/dL (NEGATIVE) 02/22/18 13:00 Urine Ketones 15 mg/dL (NEGATIVE) H 02/22/18 13:00 Urine Blood SMALL (NEGATIVE) H 02/22/18 13:00 Urine Nitrate NEGATIVE (NEGATIVE) 02/22/18 13:00 Urine Bilirubin NEGATIVE (NEGATIVE) 02/22/18 13:00 Urine Urobilinogen 0.2 E.U./dL (0.2 - 1.0) 02/22/18 13:00 Ur Leukocyte Esterase SMALL (NEGATIVE) H 02/22/18 13:00 Urine RBC 2-5 /hpf (0-5) H 02/22/18 13:00 Urine WBC 10-25 /hpf (0-5) H 02/22/18 13:00 Ur Epithelial Cells MODERATE /lpf (FEW) 02/22/18 13:00 Urine Bacteria 4+ /hpf (NONE SEEN) H 02/22/18 13:00 - Physical Exam Vitals and I&O: Vital Signs Temp 96.5 F 02/25/18 10:00 Pulse 82 02/25/18 12:40 Resp 18 02/25/18 12:40 BP 123/72 02/25/18 10:00 Pulse Ox 94 02/25/18 12:40 Intake & Output 02/24/18 02/25/18 02/25/18 18:59 06:59 18:59 Intake Total 170 Balance 170 Weight (lbs) 142 lb 12.8 oz 142 lb Intake: Intake, IV Amount 50 cefTRIAXone 1 gm In 50 Sodium Chloride 0.9% 50 ml @ 100 mls/hr IV Q24HR [facility] Rx#:[id number] Oral 120 Other: # Voids 3 3 # Bowel Movements 0 0 Stool Characteristics Soft Soft Weight Source Estimated Bedscale Active Medications: Current Medications Acetaminophen (Tylenol) 650 mg PO Q4HR PRN PRN Reason: Pain or Fever >101 Last Admin: 02/23/18 09:35 Dose: 650 mg Albuterol/Ipratropium (Duoneb Neb) 3 ml HHN Q4HRT [facility] Stop: 04/24/18 14:59 Last Admin: 02/25/18 12:40 Dose: 3 ml Aspirin (Ecotrin) 81 mg PO DAILY [facility] Stop: 04/24/18 08:59 Last Admin: 02/25/18 09:14 Dose: 81 mg Calcium Carbonate (Os-Tangela) 500 mg PO TID [facility] Stop: 04/23/18 13:59 Last Admin: 02/25/18 09:14 Dose: 500 mg Docusate Sodium (Colace) 250 mg PO BID [facility] Stop: 04/23/18 16:59 Last Admin: 02/25/18 09:14 Dose: 250 mg Enalapril Maleate (Vasotec) 20 mg PO BID [facility] Stop: 04/23/18 16:59 Last Admin: 02/25/18 09:14 Dose: 20 mg Ferrous Sulfate (Iron) 325 mg PO DAILY [facility] Stop: 04/24/18 08:59 Last Admin: 02/25/18 09:14 Dose: 325 mg Ipratropium [place] (Atrovent Neb 0.5mg/2.5ml) 0.5 mg HHN Q8HRT PRN PRN Reason: Shortness of Breath Stop: 04/23/18 12:48 Lactobacillus Rhamnosus (Culturelle 15b) 1 each PO TID HEIDI Stop: 04/25/18 13:59 Last Admin: 02/25/18 09:14 Dose: 1 each Levofloxacin (Levaquin) 500 mg PO DAILY [facility] Stop: 03/02/18 09:01 Magnesium Hydroxide (Milk Of Magnesia) 30 ml PO BID PRN PRN Reason: Constipation Stop: 04/23/18 12:48 Miscellaneous (Probiotic Screen) 1 ea MC PRN PRN PRN Reason: PROTOCOL Stop: 04/26/18 10:57 Sodium Phosphate (Fleet Enema) 135 ml RC DAILY PRN PRN Reason: Constipation Stop: 04/25/18 13:13 Vitamin D (Vitamin D) 400 iu PO DAILY [facility] Stop: 04/24/18 08:59 Last Admin: 02/25/18 09:14 Dose: 400 iu General: weak, alert (nonverbal) HEENT: NC/AT, PERRLA Neck: Supple Lungs: congested Cardiovascular: RRR, Normal S1, Normal S2, without murmur Abdomen: non-tender, positive bowel sound Extremities: excoriation Neurological: unable to follow command - Procedures Procedures: Procedures Procedure Code Date APPLICATION LOWER LEG SPLINT 30157 02/28/05 APPLICATION OF SPLINT 93.54 02/28/05 INSERT PICC CATH [id number] 03/08/10 VENOUS CATHETERIZATION NEC 38.93 03/08/10 Internal Medicine Assmt/Plan - Assessment Assessment: acute uti failure to thrive poor oral intake acute dehydration intractable vomiting generalized weakness MR cp htn - Plan Plan: continue with ppi supplemental oxygen and inhalation tx aspiration precautions cbc/bmp in am continue current plan of care Nutritional Asmnt/Malnutr-PDOC - Dietary Evaluation Malnutrition Findings (Please click <Entered> for more info): Nutritional Asmnt/Malnutrition Start: 02/23/18 15: 18 Text: Status: Complete Freq: Document 02/23/18 15:18 CORONAG (Rec: 02/23/18 15:26 LCAVERYG [email or web address]) Nutritional Asmnt/Malnutrition Patient General Information Nutritional Screening High Risk Diagnosis dehydration, FTT, UTI Pertinent Medical Hx/Surgical Hx mental retardation, cerebral palsy, HTN, chronic constipation Subjective Information Per H&P, pt had N/V, not eating for few days. Per S[employer] SOLUTIONS ARCHITECT, pt had emesis during meals. pt failed swallow eval and now on NPO. Pt seen lyin in bed at time of visit, not able to communicate. Current Diet Order/ Nutrition Support NPO Pertinent Medications os-tangela, D5-0.9%ns, colace, iron, protonix, vit D Pertinent Labs 02/22 Cr 0.6 Nutritional Hx/Data Height 5 ft 7 in Height (Calculated Centimeters) 170.2 Current Weight (lbs) 134 lb Weight (Calculated Kilograms) 60.8 Weight (Calculated Grams) 41263.4 [place] Body Weight 148 Body Mass Index (BMI) 20.9 Weight Status Approriate GI Symptoms GI Symptoms Vomitting Last BM 0 Difficult in: None Skin Integrity/Comment: rash Current %PO Poor (25-49%) Estimated Nutritional Goals BEE in Kcals: Using Current wt Calories/Kcals/Kg 25-30 Kcals Calculated 8257-3741 Protein: Using Current wt Protein g/k-1.2 Protein Calculated 61-73 Fluid: ml 1525-1830ml (1ml/kcal) Nutritional Problem 1. Problem Problem inadequate food intake Etiology pt vomiting food Signs/Symptoms: PO intake<50% and pt now on NPO Malnutrition Alert Protein-Calorie Malnutrition N/A Is there a minimum of two criteria No selected? Query Text:Check all the applicable criteria. A minimum of two criteria are recommended for diagnosis of either severe or non-severe malnutrition. Intervention/Recommendation Comments 1. Monitor NPO status. Consider alternative nutrition route to meet nutritional needs. 2. Monitor wt, labs and skin integrity 3. F/U as high risk in 2 days, 02/25 Expected Outcomes/Goals Expected Outcomes/Goals 1. Pt to meet at least 75% of nutritional needs. 2. Wt stability, skin to remain intact, labs to approach WNL.
--- NOTE | 2018-02-25 19:43 | Discharge Summary ---
DATE OF DISCHARGE: DISCHARGE DIAGNOSES: Acute urinary tract infection, failure to thrive, poor oral intake, dehydration, generalized weakness, mitral regurgitation, cerebral palsy and hypertension. HISTORY OF PRESENT ILLNESS: A 52-year-old male with a history of mental retardation, cerebral palsy, hypertension, comes with chronic constipation, admitted from nursing facility secondary to fever, chills, nausea, vomiting, not feeling well, not eating. PHYSICAL EXAMINATION: GENERAL: Elderly male, appears chronically ill, no apparent distress. VITAL SIGNS: Stable. HEENT: Head normocephalic and atraumatic. NECK: Supple. No mass. LUNGS: Clear bilaterally. HEART: Regular rate and rhythm. ABDOMEN: Soft and nontender. HOSPITAL COURSE: During the hospital stay, the patient was admitted to the telemetry unit. The patient had a Cardiology consultation on board. The patient had episodes of vomiting. The patient was kept on Zofran p.r.n. A KUB was ordered and there is no evidence of any small-bowel obstruction. The patient was kept n.p.o. and was kept on aggressive IV fluids for hydration. The patient had a swallow evaluation twice. The first time the patient did not pass due to vomiting while being fed. A second time the patient did pass. The patient's potassium has been low and we have replaced the patient's potassium. There are no episodes of any vomiting. For this reason, the patient is stable for discharge. CONDITION UPON DISCHARGE: Fair. DISPOSITION: [facility]. JOB# [id number]
== END 2018-02-25 17:35 | DRG 871 ==
LOC: ER 12:14 → TELE 15:38
PROVIDERS: ADMIT Internal Medicine; ATTEND Internal Medicine
DX: A41.9 Sepsis, unspecified organism (principal); G82.50 Quadriplegia, unspecified; N39.0 Urinary tract infection, site not specified; R62.7 Adult failure to thrive; E86.0 Dehydration; G40.909 Epilepsy, unspecified, not intractable, without status epilepticus; F79 Unspecified intellectual disabilities; D64.9 Anemia, unspecified; I50.9 Heart failure, unspecified; R13.10 Dysphagia, unspecified; K21.9 Gastro-esophageal reflux disease without esophagitis; F03.90 Unspecified dementia, unspecified severity, without behavioral disturbance, psychotic disturbance, mood disturbance, and anxiety; M19.90 Unspecified osteoarthritis, unspecified site; K29.70 Gastritis, unspecified, without bleeding; K59.09 Other constipation; I34.0 Nonrheumatic mitral (valve) insufficiency; I11.0 Hypertensive heart disease with heart failure; Z91.030 Bee allergy status; Z86.73 Personal history of transient ischemic attack (TIA), and cerebral infarction without residual deficits; Z82.49 Family history of ischemic heart disease and other diseases of the circulatory system; Z79.899 Other long term (current) drug therapy
CPT/HCPCS: 36415-UA; 71045-TC; 74000-TC; 80048-TC; 80053-TC; 80061-TC; 81001-TC; 82150-TC; 82550-TC; 83605; 83690-TC; 83735-TC; 83880-TC; 84100-TC; 84443-TC; 84484-TC; 85007-TC; 85025-TC; 85027-TC; 85610-TC; 85730-TC; 87086-90; 93005; 94760; 96375; C9113; J0696; J2405; J7030; J7042; X3401; X6470; Z7610

== ENCOUNTER 2018-02-28 09:48 | Inpatient (IN) | payer MEDICARE, MEDICAID ==
[2018-02-28] MEDS ORDERED: Sodium Chloride 0.9% 1,000 ML IV ONE (10:12)
[2018-02-28 10:42] LABS: % EOSINOPHILS 5.4 % (0.0-5.0); % LYMPHOCYTES 20.6 % (20.0-50.0); EOSINOPHILE ABSOLUTE 0.3 Th/cmm (0.1-0.4); HEMATOCRIT 42.7 % (41.0-60); HEMOGLOBIN 13.8 gm/dL (12-16); LYMPHOCYTE ABSOLUTE 1.1 Th/cmm (1.5-3.0); MEAN CELL VOLUME 90.4 fl (80-99); MEAN CORPUSCULAR HEMOGLOBIN 29.2 pg (26.0-30.0); MEAN CORPUSCULAR HGB CONC 32.4 pg (28.0-36.0); MEAN PLATELET VOLUME 8.1 fl; MONOCYTE ABSOLUTE 0.4 Th/cmm (0.3-1.0); NEUTROPHILE ABSOLUTE 3.5 Th/cmm (1.8-8.0); PLATELET COUNT 234 Th/cmm (150-400); RED BLOOD COUNT 4.72 Mil/cmm (4.30-5.70); RED CELL DISTRIBUTION WIDTH 12.3 % (11.5-20.0); WHITE BLOOD COUNT 5.3 Th/cmm (4.8-10.8)
[2018-02-28 10:53] LABS: INR 1.06 (0.5-1.4)
--- NOTE | 2018-02-28 10:53 | ED Physician Chart ---
ED Chief Complaint/HPI - Patient Information Date Seen:: 02/28/18 Time Seen:: 10:20 Chief Complaint:: Vomiting History of Present Illness:: onset x one day of N/V/D, melena, and hematemesis; no report of hematochezia, trauma, H/As, S/T, neck pain, C/P, SOB,, Abd. Pain, A/C, fever, chills, or urinary s/s Allergies:: Allergies Allergy/AdvReac Type Severity Reaction Status Date / Time bee stings Allergy Unknown Uncoded 12/18/12 10:59 Vitals:: Vital Signs - 8 hr 02/28/18 10:22 Temp 99.0 F HR 82 RR 16 BP 104/79 O2 Sat % 92 Historian:: Patient, EMS Review:: Nurse's Note Reviewed, Old Chart Reviewed, EMS run form Reviewed ED Review of Systems - Review of Systems General/Constitutional: No fever, No chills, No weight loss, No weakness, No diaphoresis, No edema, No loss of appetite Skin: No skin lesions, No rash, No bruising Head: No headache, No light-headedness Eyes: No loss of vision, No pain, No diplopia ENT: No earache, No nasal drainage, No sore throat, No tinnitus Neck: No neck pain, No swelling, No thyromegaly, No stiffness, No mass noted Cardio Vascular: No chest pain, No palpitations, No PND, No orthopnea, No edema Pulmonary: No SOB, No cough, No sputum, No wheezing GI: Nausea, Vomiting, Diarrhea, Pain, Melena, No hematochezia, No constipation, Hematemesis G/U: No dysuria, No frequency, No hematuria, No nacturia Musculoskeletal: No bone or joint pain, No back pain, No muscle pain Endocrine: No polyuria, No polydipsia Psychiatric: No prior psych history, No depression, No anxiety, No suicidal ideation, No homicidal ideation, No auditory hallucination, No visual hallucination Hematopoietic: No bruising, No lymphadenopathy Allergic/Immuno: No urticaria, No angioedema Neurological: No syncope, Focal symptoms, No weakness, No paresthesia, No headache, No seizure, No dizziness, Confusion, No vertigo ED Past Medical History - Past Medical History Obtainable: Yes Past Medical History: CHF, CVA/TIA, Dyslipidemia, PUD/GERD, Seizures, Dementia, Other (CP) Family History: Diabetes Melitus, HTN Social History: Non Smoker, No Alcohol, No Drug Use, Single, Care Facility Surgical History: PEG/GTube Psychiatricy History: Dementia Medication: Reviewed Family Medical History - Family Member Mother History Unknown: Yes ED Physical Exam - Physical Examination General/Constitutional: Awake, Well-developed, well-nourished, Alert, No distress, GCS 15, Non-toxic appearing, Ambulatory Head: Atraumatic Eyes: Lids, conjuctiva normal, PERRL, EOMI Skin: Nl inspection, No rash, No skin lesions, No ecchymosis, Well hydrated, No lymphadenopathy ENMT: External ears, nose nl, Nasal exam nl, Lips, teeth, gums nl Neck: Nontender, Full ROM w/o pain, No JVD, No nuchal rigidity, No bruit, No mass, No stridor Respiratory: Nl effort/Exclusion Other Respiratory comments:: Lungs: + Rales and Rhonchi Cardio Vascular: RRR, No murmur, gallop, rubs, NL S1 S2, Carotid/Femoral/Distal pulses equal bilaterally GI: No tenderness/rebounding/guarding, No organomegaly, No hernia, Normal BS's, Nondistended, No mass/bruits, No McBurney tenderness, Rectum exam nl : No CVA tenderness Extremities: No tenderness or effusion, Full ROM, normal strength in all extremities, No edema, Normal digits & nails Neuro/Psych: Alert/oriented, DTR's symmetric, Normal sensory exam, Normal motor strength, Judgement/insight normal, Mood normal, Normal gait, No focal deficits Misc: Normal back, No paraspinal tenderness ED Labs/Radiology/EKG Results - Lab Results Results: Laboratory Tests 02/28/18 10:30 WBC 5.3 RBC 4.72 Hgb 13.8 Hct 42.7 MCV 90.4 MCH 29.2 MCHC Differential 32.4 RDW 12.3 Plt Count 234 MPV 8.1 Neutrophils % 66.0 Lymphocytes % 20.6 Monocytes % 8.0 Eosinophils % 5.4 H Basophils % 0.0 Comments:: BNP: 187 - Radiology Results Comments:: CXR: CM; + Infiltrate; CHF - EKG Interpretations EKG Time:: 10:15 Rate & Rhythm: 69; NSR Comments:: LAE; LVH; non-specific st-t changes ED Septic Shock - . Is Septic Shock (SBP<90, OR Lactate>4 mmol\L) present?: No - <6hrs of presentation: Vital Signs: Vital Signs - 8 hr 02/28/18 10:22 Temp 99.0 F HR 82 RR 16 BP 104/79 O2 Sat % 92 ED Reassessment (Disposition) - Reassessment Reassessment Condition:: Improved - Diagnosis Diagnosis:: Dx: N/V/D; Hematemesis; UGI Bleed; PNA; Aspiration PNA; Sepsis; CHF - Aftercare/Follow up Instructions Aftercare/Follow-Up Instructions:: Counseled pt regarding lab results/diagnosis & need follow up, Counseled pt & family regarding lab results/diagnosis & need follow up - Patient Disposition Discharge/Transfer:: Acute Care w/in this hosp Accepting Physician:: Dr. Almanzar Time Called:: 1110 Time Responded:: 11:10 Admitted to:: Telemetry Spoke to:: Dr. Almanzar Admitting Medical Physician:: Dr. Almanzar Condition at Disposition:: Stable, Improved
[2018-02-28] MEDS ORDERED: Levofloxacin 500mg/100mL 500 MG/100 ML BAG IV ONE ×2 (10:55→11:21)
[2018-02-28 10:56] LABS: AMYLASE SERUM 54 U/L (29-103); LIPASE 20 U/L (11-82)
[2018-02-28 10:59] LABS: ALB/GLOB RATIO 1.2 (1.0-1.8); ALBUMIN 3.9 gm/dL (4.2-5.5); ALKALINE PHOSPHATASE 88 U/L (34-104); ANION GAP 10.4 (7.0-16.0); BILIRUBIN,TOTAL 0.3 mg/dL (0.3-1.0); BUN - UREA NITROGEN 25 mg/dL (7-25); CALCIUM SERUM 10.2 mg/dL (8.6-10.3); CARBON DIOXIDE 33.2 mEq/L (21.0-31.0); CHLORIDE 105 mEq/L (98-107); CHOLESTEROL 176 mg/dL (<200); CREATININE - SERUM 0.6 mg/dL (0.7-1.3); CREATININE KINASE 44 U/L (30-223); GFR AFRICAN-AMERICAN > 60.0 ml/min (>90); GFR NON AFRICAN-AMERICAN > 60.0 ml/min; GLUCOSE 90 mg/dL (70-105); HDL -HIGH DENSITY LIPOPROTEIN 42 mg/dL (23-92); POTASSIUM SERUM 3.6 mEq/L (3.5-5.1); SGOT 15 U/L (13-39); SGPT/ALT 18 U/L (7-52); SODIUM SERUM 145 mEq/L (136-145); TOTAL PROTEIN,SERUM 7.3 gm/dL (6.0-8.3); TRIGLYCERIDES 107 mg/dL (<150)
--- NOTE | 2018-02-28 11:56 | History & Physical ---
ADMIT DATE: 02/28/2018 DICTATED FOR: Dr. Gael Almanzar CHIEF COMPLAINT: Vomiting blood. HISTORY OF PRESENT ILLNESS: This is a 52-year-old male who is a resident of [facility] with a 1-day history of vomiting blood. The patient did not have any fevers or any chills at the [facility]. The patient was recently discharged from this hospital on 02/25/2018 for acute dehydration and UTI. For further management, the patient will be admitted to the telemetry unit. PAST MEDICAL HISTORY: MR, cerebral palsy, hypertension, chronic constipation. PAST SURGICAL HISTORY: Unknown. ALLERGIES: BEE STINGS. MEDICATIONS: Tylenol, Atrovent, Colace, milk of magnesia, Pepcid, Os-Joesph with vitamin D. FAMILY HISTORY: Noncontributory. SOCIAL HISTORY: The patient is a [facility] resident requiring 24-hour nursing care. REVIEW OF SYSTEMS: Unable to obtain, the patient is nonverbal. PHYSICAL EXAMINATION: GENERAL: Elderly male, awake, nonverbal, no apparent distress. VITAL SIGNS: Temperature 99.0, heart rate 82, blood pressure 104/79, respirations 16, O2 97%. HEENT: Head normocephalic, atraumatic. NECK: Supple. No mass. LUNGS: Clear bilaterally. CARDIOVASCULAR: Regular rate and rhythm. ABDOMEN: Mildly distended, nontender. LABORATORY DATA: WBC 5.3, H and H 13.8 and 42.7, platelet of 234. Sodium 145, potassium 3.6, chloride 105, BUN 25, creatinine 0.6. BNP of 187. Albumin 3.9. DIAGNOSTIC DATA: Awaiting for the patient's chest x-ray results. ASSESSMENT: Hematemesis, possible upper GI bleeding, mild protein calorie malnutrition, history of CVA, dyslipidemia, GERD, seizures, dementia and cerebral palsy. PLAN: The patient to be admitted to the telemetry unit. We will keep the patient n.p.o. for now. We will monitor the patient's H and H. We will get GI on the case. Do IV fluids for hydration. We will await for the patient's chest x-ray results. We will continue to follow this patient. [facility]# [id number]
--- NOTE | 2018-02-28 12:06 | Diagnostic Imaging Report ---
CHEST X-RAY: AP view INDICATION: pain COMPARISON: 02/24/2018 FINDINGS: Exam is limited due to body habitus and spinal scoliosis. Multilevel spinal fixation hardware is noted. Increased interstitial lung markings are again noted. No focal consolidation identified. There may be left basal pleural thickening. Cardiomegaly is noted. Gas-distended loops of bowel of the upper abdomen are noted. IMPRESSION: Limited exam due to body habitus and scoliosis. Increased interstitial lung markings are noted, nonspecific and may be chronic. No focal consolidation or evidence of jackson CHF Cardiomegaly. Probable ileus.
[2018-02-28] MEDS ORDERED: LACTOBACILLUS ACIDOPHILUS PO SCH (19:50)
[2018-02-28] MEDS ORDERED: [UNRECOGNIZED DRUG - OTHER] TP PRN (19:50)
[2018-02-28] MEDS ORDERED: Ipratropium Neb 0.5 mg/2.5 mL UD IH PRN (19:50)
[2018-02-28] MEDS ORDERED: guaiFENesin 200 MG/10 ML UDC PO PRN (19:50)
[2018-02-28] MEDS ORDERED: OMEPRAZOLE PO SCH (19:50)
[2018-02-28] MEDS ORDERED: Fleet Enema 135 mL RC PRN (19:50)
[2018-02-28] MEDS ORDERED: Non-Formulary Item 1 EA (Oxybenzone/Padimate O [Sunscreen Spf8 Lotion] 120 ML) TP PRN (19:50)
[2018-02-28] MEDS ORDERED: Magnesium Hydroxide (MOM) 30 mL UDC PO PRN (19:50)
[2018-02-28] MEDS ORDERED: [UNRECOGNIZED DRUG - OTHER] PO SCH (19:50)
[2018-02-28] MEDS ORDERED: Albuterol Nebulizer 2.5mg/3mL IH PRN (19:50)
[2018-02-28] MEDS ORDERED: Maalox 30 mL Cup PO PRN (19:50)
[2018-02-28] MEDS: D5-0.45NS 1,000 ML IV SCH (21:24)
[2018-03-01 05:29] LABS: % EOSINOPHILS 6.2 % (0.0-5.0); % LYMPHOCYTES 26.7 % (20.0-50.0); % MONOCYTES 6.7 % (2.0-10.0); % NEUTROPHILS 60.4 % (40.0-80.0); EOSINOPHILE ABSOLUTE 0.3 Th/cmm (0.1-0.4); HEMATOCRIT 41.7 % (41.0-60); HEMOGLOBIN 13.7 gm/dL (12-16); LYMPHOCYTE ABSOLUTE 1.3 Th/cmm (1.5-3.0); MEAN CELL VOLUME 89.5 fl (80-99); MEAN CORPUSCULAR HEMOGLOBIN 29.4 pg (26.0-30.0); MEAN CORPUSCULAR HGB CONC 32.9 pg (28.0-36.0); MEAN PLATELET VOLUME 8.3 fl; MONOCYTE ABSOLUTE 0.3 Th/cmm (0.3-1.0); NEUTROPHILE ABSOLUTE 2.8 Th/cmm (1.8-8.0); PLATELET COUNT 252 Th/cmm (150-400); RED BLOOD COUNT 4.66 Mil/cmm (4.30-5.70); RED CELL DISTRIBUTION WIDTH 12.1 % (11.5-20.0); WHITE BLOOD COUNT 4.7 Th/cmm (4.8-10.8)
[2018-03-01 05:57] LABS: ANION GAP 9.5 (7.0-16.0); BUN - UREA NITROGEN 22 mg/dL (7-25); CALCIUM SERUM 9.1 mg/dL (8.6-10.3); CARBON DIOXIDE 33.9 mEq/L (21.0-31.0); CHLORIDE 105 mEq/L (98-107); CREATININE - SERUM 0.5 mg/dL (0.7-1.3); GFR AFRICAN-AMERICAN > 60.0 ml/min (>90); GFR NON AFRICAN-AMERICAN > 60.0 ml/min; GLUCOSE 93 mg/dL (70-105); POTASSIUM SERUM 3.4 mEq/L (3.5-5.1); SODIUM SERUM 145 mEq/L (136-145)
[2018-03-01 06:59] VITALS: BP 126/78
--- NOTE | 2018-03-01 08:11 | Diagnostic Imaging Report ---
Ultrasound abdomen HISTORY: Abdominal pain, vomiting COMPARISON: None Technique: Sonography of the abdomen was performed in multiple planes. FINDINGS: Exam is limited due to body habitus and bowel gas. The liver demonstrates normal echogenicity. The liver margins are not well-defined limiting assessment for focal lesions. The liver measures 12.1 cm. Cholelithiasis is noted. The gallbladder wall measures 3 mm. The common bile duct measures 3 mm. Evaluation of the pancreas is limited due to bowel gas. The right kidney measures 11.2 x 4.8 cm. There is a complex lesion of the superior pole measuring 1.5 x 1.4 cm with internal echoes. No hydronephrosis. The left kidney measures 9.6 x 4.8 cm. There is suboptimal visualization of the left kidney limiting assessment for focal lesions. There is also limited assessment for hydronephrosis of the left kidney. The spleen measures 8.5 cm. The abdominal aorta is not well-visualized due to bowel gas. IMPRESSION: Markedly limited exam due to body habitus and bowel gas. Cholelithiasis with borderline prominent gallbladder wall. Please correlate with clinical findings. If indicated follow up exam such as nuclear medicine HIDA scan may be obtained for further assessment. Small complex lesion of the right superior kidney measuring 1.5 x 1.4 cm is possibly a hemorrhagic or proteinaceous cyst. A short-term follow-up CT, preferably with IV contrast is, however, recommended for further characterization to rule out other mass lesions or low-grade cystic neoplastic process.
[2018-03-01] MEDS: Ferrous Sulfate 325 MG TAB PO SCH (09:00)
[2018-03-01] MEDS: Lactobacillus Rhamnosus GG 15 Billion CFU CAP.SPRINK PO SCH (09:00)
[2018-03-01] MEDS: Vitamin A/Vitamin D 5 gm Packet TP SCH ×2 (09:00→17:42)
--- NOTE | 2018-03-01 13:23 | Internal Medicine Prog Note ---
Internal Medicine Subjective - Subjective Service Date: 03/01/18 Patient seen and examined:: with staff Patient is:: awake Per staff patient has:: tolerating meds Internal Medicine Objective - Results Result Diagrams: 03/01/18 04:50 03/01/18 04:50 Recent Labs: Laboratory Last Values WBC 4.7 Th/cmm (4.8-10.8) L 03/01/18 04:50 RBC 4.66 Mil/cmm (4.30-5.70) 03/01/18 04:50 Hgb 13.7 gm/dL (12-16) 03/01/18 04:50 Hct 41.7 % (41.0-60) 03/01/18 04:50 MCV 89.5 fl (80-99) 03/01/18 04:50 MCH 29.4 pg (26.0-30.0) 03/01/18 04:50 MCHC Differential 32.9 pg (28.0-36.0) 03/01/18 04:50 RDW 12.1 % (11.5-20.0) 03/01/18 04:50 Plt Count 252 Th/cmm (150-400) 03/01/18 04:50 MPV 8.3 fl 03/01/18 04:50 Neutrophils % 60.4 % (40.0-80.0) 03/01/18 04:50 Lymphocytes % 26.7 % (20.0-50.0) 03/01/18 04:50 Monocytes % 6.7 % (2.0-10.0) 03/01/18 04:50 Eosinophils % 6.2 % (0.0-5.0) H 03/01/18 04:50 Basophils % 0.0 % (0.0-2.0) 03/01/18 04:50 PT 11.0 SECONDS (9.5-11.5) 02/28/18 10:30 INR 1.06 (0.5-1.4) 02/28/18 10:30 Sodium 145 mEq/L (136-145) 03/01/18 04:50 Potassium 3.4 mEq/L (3.5-5.1) L 03/01/18 04:50 Chloride 105 mEq/L (98-107) 03/01/18 04:50 Carbon Dioxide 33.9 mEq/L (21.0-31.0) H 03/01/18 04:50 Anion Gap 9.5 (7.0-16.0) 03/01/18 04:50 BUN 22 mg/dL (7-25) 03/01/18 04:50 Creatinine 0.5 mg/dL (0.7-1.3) L 03/01/18 04:50 Est GFR ( Amer) > 60.0 ml/min (>90) 03/01/18 04:50 Est GFR (Non-Af Amer) > 60.0 ml/min 03/01/18 04:50 BUN/Creatinine Ratio 44.0 03/01/18 04:50 Glucose 93 mg/dL (70-105) 03/01/18 04:50 POC Glucose 71 MG/DL (70 - 105) 02/28/18 23:03 Calcium 9.1 mg/dL (8.6-10.3) 03/01/18 04:50 Total Bilirubin 0.3 mg/dL (0.3-1.0) 02/28/18 10:30 AST 15 U/L (13-39) 02/28/18 10:30 ALT 18 U/L (7-52) 02/28/18 10:30 Alkaline Phosphatase 88 U/L (34-104) 02/28/18 10:30 Creatine Kinase 44 U/L (30-223) 02/28/18 10:30 Troponin I 0.01 ng/mL (0.01-0.05) 02/28/18 10:30 B-Natriuretic Peptide 187.0 pg/mL (5.0-100.0) H 02/28/18 10:30 Total Protein 7.3 gm/dL (6.0-8.3) 02/28/18 10:30 Albumin 3.9 gm/dL (4.2-5.5) L 02/28/18 10:30 Globulin 3.4 gm/dL 02/28/18 10:30 Albumin/Globulin Ratio 1.2 (1.0-1.8) 02/28/18 10:30 Triglycerides 107 mg/dL (<150) 02/28/18 10:30 Cholesterol 176 mg/dL (<200) 02/28/18 10:30 LDL Cholesterol Direct 114 mg/dL (75-193) 02/28/18 10:30 HDL Cholesterol 42 mg/dL (23-92) 02/28/18 10:30 Amylase 54 U/L (29-103) 02/28/18 10:30 Lipase 20 U/L (11-82) 02/28/18 10:30 - Physical Exam Vitals and I&O: Vital Signs Temp 97 F 03/01/18 08:45 Pulse 65 03/01/18 08:58 Resp 18 03/01/18 09:30 BP 107/73 03/01/18 08:58 Pulse Ox 94 03/01/18 08:45 Intake & Output 02/28/18 03/01/18 03/01/18 18:59 06:59 18:59 Weight (lbs) 142 lb 131 lb 14.4 oz Other: # Voids 2 # Bowel Movements 0 Weight Source Bedscale Active Medications: Current Medications Al Hydrox/Mg Hydrox/Simethicone (Maalox) 30 ml PO Q6HR PRN PRN Reason: Dyspepsia Stop: 04/29/18 19:49 Albuterol Sulfate (Albuterol 2.5mg/3ml Neb Ud) 2.5 mg IH Q2HR PRN PRN Reason: Shortness of Breath or Wheeze Stop: 04/29/18 19:49 Ascorbic Acid (Vitamin C) 500 mg PO BID [facility] Stop: 04/29/18 19:49 Last Admin: 03/01/18 08:57 Dose: Not Given Bisacodyl (Dulcolax 10 Mg Supp) 10 mg RC DAILY PRN PRN Reason: Constipation Stop: 04/29/18 19:49 Calcium Carbonate (Os-Jeosph) 500 mg PO TID [facility] Stop: 04/29/18 19:49 Last Admin: 03/01/18 08:57 Dose: Not Given Cholecalciferol (Vitamin D3) 1,000 iu PO DAILY [facility] Stop: 04/30/18 08:59 Last Admin: 03/01/18 08:58 Dose: Not Given Docusate Sodium (Colace) 250 mg PO BID [facility] Stop: 04/30/18 08:59 Last Admin: 03/01/18 08:58 Dose: Not Given Enalapril Maleate (Vasotec) 20 mg PO BID [facility] Stop: 04/30/18 08:59 Last Admin: 03/01/18 08:58 Dose: Not Given Ferrous Sulfate (Iron) 325 mg PO DAILY [facility] Stop: 04/30/18 08:59 Last Admin: 03/01/18 09:00 Dose: Not Given Guaifenesin (Robitussin) 100 mg PO Q4H PRN PRN Reason: Cough or Congestion Stop: 04/29/18 19:49 Dextrose/Sodium Chloride (D5-0.45ns) 1,000 mls @ 80 mls/hr IV .[id number] [facility] Stop: 04/29/18 19:49 Last Admin: 02/28/18 21:24 Dose: 80 mls/hr Ipratropium [place] (Atrovent Neb 0.5mg/2.5ml) 0.5 mg IH Q2HR PRN PRN Reason: Shortness of Breath or Wheeze Stop: 04/29/18 19:49 Lactobacillus Rhamnosus (Culturelle 15b) 1 each PO DAILY [facility] Stop: 04/30/18 08:59 Last Admin: 03/01/18 09:00 Dose: Not Given Lorazepam (Ativan) 0.5 mg IV Q4HR PRN; Protocol PRN Reason: Seizure Stop: 04/29/18 19:49 Magnesium Hydroxide (Milk Of Magnesia) 30 ml PO Q3D PRN PRN Reason: Constipation Stop: 04/29/18 19:49 Magnesium Oxide (Mag-Oxide) 400 mg PO DAILY [facility] Stop: 04/30/18 08:59 Last Admin: 03/01/18 09:00 Dose: Not Given Metoclopramide HCl (Reglan) 5 mg PO BID [facility] Stop: 04/29/18 19:49 Last Admin: 03/01/18 09:00 Dose: Not Given Ondansetron HCl (Zofran) 4 mg IV Q8H PRN PRN Reason: Nausea / Vomiting Stop: 04/29/18 19:49 Pantoprazole Sodium (Protonix) 40 mg IVP DAILY [facility] Stop: 04/30/18 08:59 Last Admin: 03/01/18 09:12 Dose: 40 mg Sodium Phosphate (Fleet Enema) 135 ml RC DAILY PRN PRN Reason: Constipation Stop: 04/29/18 19:49 Vitamin A (Vitamin A & D) 5 gm TP BID [facility] Stop: 04/30/18 08:59 Last Admin: 03/01/18 09:00 Dose: Not Given General: weak HEENT: NC/AT, PERRLA Neck: Supple Lungs: CTAB Cardiovascular: RRR, Normal S1, without murmur Abdomen: soft, non-tender, non-distended, positive bowel sound Neurological: unable to follow command - Procedures Procedures: Procedures Procedure Code Date APPLICATION LOWER LEG SPLINT 62908 02/28/05 APPLICATION OF SPLINT 93.54 02/28/05 INSERT PICC CATH 23907 03/08/10 VENOUS CATHETERIZATION NEC 38.93 03/08/10 Internal Medicine Assmt/Plan - Assessment Assessment: hematemesis possible upper gi bleed mild protein calorie malnutrition hx cva dyslipidemia gerd seizures dementia cerebral palsy - Plan Plan: EGD TODAY monitor h/h continue with PPI gi follow up ivf for hydration continue current plan of care Nutritional Asmnt/Malnutr-PDOC - Dietary Evaluation Malnutrition Findings (Please click <Entered> for more info): Nutritional Asmnt/Malnutrition Start: 03/01/18 10: 57 Text: Status: Active Freq: Document 03/01/18 10:57 ZAHIRA (Rec: 03/01/18 11:09 [facility]) Nutritional Asmnt/Malnutrition Patient General Information Nutritional Screening High Risk Consult Diagnosis PNA, GI bleed Pertinent Medical Hx/Surgical Hx MD, cerebral palsy, HTN, chronic constipation Subjective Information not completed Per H&P, pt had blood vomiting x 1 day. EGD and swallow eval was ordered. Consult received for anne score <12. Current Diet Order/ Nutrition Support NPO Pertinent Medications vit C, os-joesph, vit D3, D5-0. 45ns, colace, iron, culturelle ,mag-oxide, reglan, protonix, vit A&D Pertinent Labs 03/01 K 3.4, Cr 0.5 Nutritional Hx/Data Height 5 ft 7 in Height (Calculated Centimeters) 170.2 Current Weight (lbs) 132 lb Weight (Calculated Kilograms) 59.9 Weight (Calculated Grams) 23924.2 [place] Body Weight 148 Body Mass Index (BMI) 20.7 Weight Status Approriate GI Symptoms GI Symptoms Vomitting Skin Integrity/Comment: pressure area to right/left buttocks, right cheek, abrasion to left knee. Estimated Nutritional Goals BEE in Kcals: Using Current wt Calories/Kcals/Kg 27-32 Kcals Calculated 1078-4895 Protein: Using Current wt Protein g/k.1-1.3 Protein Calculated 66-78 Fluid: ml 1620-1920ml (1ml/kcal)
[2018-03-01] MEDS ORDERED: Potassium Chloride 20 mEq ER Tab PO ONE (14:00)
--- NOTE | 2018-03-01 14:25 | Diagnostic Imaging Report ---
Radionuclide biliary scan (HIDA scan) HISTORY: Pain, cholelithiasis 5.5 mCi technetium labeled biliary agent used in the exam. There is normal hepatic uptake and clearance. There is excretion of nuclide into the gallbladder, common bile duct, and small bowel. IMPRESSION: Normal examination
[2018-03-01] MEDS ORDERED: Lidocaine 2% Gel 5 mL TP ONE (16:00)
[2018-03-01] MEDS ORDERED: Propofol 10 mg/mL 20mL Vial **SURGERY USE ONLY IV ONE (16:00)
[2018-03-01] MEDS: D5-0.45NS 1,000 ML IV SCH (17:29)
--- NOTE | 2018-03-01 22:08 | Operative Report ---
DATE OF SURGERY: 03/01/2018 GASTROENTEROLOGY OPERATIVE NOTE PROCEDURE: Esophagogastroduodenoscopy with biopsy. PREOPERATIVE DIAGNOSIS: Upper gastrointestinal bleed. POSTOPERATIVE DIAGNOSES: 1. Mild reflux esophagitis, probable cause of upper gastrointestinal bleed, now stopped. 2. Small hiatal hernia. 3. Mild gastritis, status post CLOtest. 4. Two gastric body polyps sampled with biopsy forceps. 5. Two small nonbleeding angiodysplasias in the gastric body, left alone. INDICATIONS: A 52-year-old male with mental retardation, cerebral palsy, admitted for coffee-ground emesis. CONSENT: Informed consent was obtained from the patient's family prior to procedure after detailed explanation of risks, benefits, and alternatives including but not limited to infection, bleeding, perforation, and . SEDATION: Monitored anesthesia care. DESCRIPTION OF PROCEDURE AND FINDINGS: The procedure took place as an inpatient in the GI suite of [facility]. The patient was kept in a lithotomy position. Adequate sedation was achieved by the anesthesiologist. An Olympus diagnostic upper endoscope was advanced through the patient's mouth and into the esophagus. Here, there was mild distal reflux esophagitis. No active bleeding was identified at the time of endoscopy. The Z-line was noted at about 35 cm from the gums. Retroflexion of the stomach revealed a small hiatal hernia, no GE junction mass or varices were identified. Mild gastritis identified in the antrum. Biopsy obtained for CLOtest. Two 1 cm sessile gastric body polyps were sampled with biopsy forceps, but not completely excised. Two small nonbleeding angiodysplasias were also identified in the gastric body. These were also left alone. The pyloric channel and duodenum up to the second portion appeared normal. The scope was withdrawn from the patient. The patient tolerated the procedure well and no complications are anticipated. RECOMMENDATIONS: 1. Follow biopsy results. 2. Protonix. 3. Diet as tolerated. Thank you, Dr. Gael Almanzar for involving us in the care of your patient. If you have any further questions, please call us. JOB# [id number]
--- NOTE | 2018-03-02 02:28 | Consultation ---
DATE OF CONSULTATION: 03/01/2018 GASTROENTEROLOGY CONSULTATION REQUESTING PHYSICIAN: Gael Almanzar. REASON FOR CONSULTATION: Upper GI bleed. HISTORY OF PRESENT ILLNESS: A 52-year-old male with history of mental retardation, cerebral palsy, hypertension, and chronic constipation, admitted for upper GI bleed. He was noted to have coffee-ground emesis x 3. It is unknown whether he has had a previous endoscopy. PAST MEDICAL HISTORY: As above. MEDICATIONS: Here are Maalox, albuterol, vitamin C, Dulcolax p.r.n., calcium carbonate, vitamin D3, Colace, ferrous sulfate, Culturelle, Ativan, milk of magnesia, Reglan 5 mg orally twice daily, Protonix 40 mg IV push daily, Zofran p.r.n., Fleet enema p.r.n. ALLERGIES: BEE STINGS. SOCIAL HISTORY: No recent tobacco, alcohol or drugs. FAMILY HISTORY: Noncontributory. REVIEW OF SYSTEMS: Comprehensive 12-point review of system was conducted and is only positive for those signs and symptoms present in history of present illness. PHYSICAL EXAMINATION: VITAL SIGNS: Temperature 96.8, blood pressure 121/71, pulse of 50, respirations 17, O2 sat 94%. GENERAL: The patient is well-developed, well-nourished male who is in no acute distress, essentially nonverbal. HEENT: Sclerae are anicteric. Oropharynx is clear. CARDIOVASCULAR: Regular rate and rhythm. LUNGS: Clear to auscultation bilaterally. ABDOMEN: Soft, nontender, nondistended. EXTREMITIES: No clubbing, cyanosis or edema. RECTAL: Deferred. LABORATORY DATA AND IMAGING: Most recent WBC 4.7, hemoglobin 13.7, platelet count is 252. Creatinine is 0.5. Liver enzymes are normal. Albumin 3.9. Ultrasound of the abdomen shows limited examination of cholelithiasis with borderline prominent gallbladder wall. Subsequent HIDA scan was negative. IMPRESSION: 1. Upper gastrointestinal bleed, rule out esophagitis, gastritis, peptic ulcer disease, etc. 2. Mental retardation, cerebral palsy. 3. Hypertension. 4. Chronic constipation. 5. Cholelithiasis, likely asymptomatic. RECOMMENDATIONS: 1. Upper endoscopy to follow. 2. Protonix. 3. Monitor hemoglobin, transfuse as necessary. 4. Further recommendations following upper endoscopy. Thank you, Dr. Gael Almanzar for involving us in the care of your patient. If you have any further questions, please call us. JOB# [id number]
[2018-03-02 06:43] LABS: % BASOPHILS 0.2 % (0.0-2.0); % LYMPHOCYTES 26.9 % (20.0-50.0); % MONOCYTES 8.8 % (2.0-10.0); % NEUTROPHILS 57.1 % (40.0-80.0); EOSINOPHILE ABSOLUTE 0.4 Th/cmm (0.1-0.4); HEMOGLOBIN 12.8 gm/dL (12-16); LYMPHOCYTE ABSOLUTE 1.4 Th/cmm (1.5-3.0); MEAN CORPUSCULAR HEMOGLOBIN 29.2 pg (26.0-30.0); MEAN CORPUSCULAR HGB CONC 32.8 pg (28.0-36.0); MEAN PLATELET VOLUME 8.3 fl; MONOCYTE ABSOLUTE 0.5 Th/cmm (0.3-1.0); NEUTROPHILE ABSOLUTE 2.9 Th/cmm (1.8-8.0); PLATELET COUNT 242 Th/cmm (150-400); RED BLOOD COUNT 4.38 Mil/cmm (4.30-5.70); RED CELL DISTRIBUTION WIDTH 11.9 % (11.5-20.0); WHITE BLOOD COUNT 5.2 Th/cmm (4.8-10.8)
[2018-03-02 07:15] LABS: BUN - UREA NITROGEN 17 mg/dL (7-25); CALCIUM SERUM 8.9 mg/dL (8.6-10.3); CARBON DIOXIDE 29.7 mEq/L (21.0-31.0); CHLORIDE 106 mEq/L (98-107); CREATININE - SERUM 0.5 mg/dL (0.7-1.3); GFR AFRICAN-AMERICAN > 60.0 ml/min (>90); GFR NON AFRICAN-AMERICAN > 60.0 ml/min; GLUCOSE 89 mg/dL (70-105); POTASSIUM SERUM 3.7 mEq/L (3.5-5.1); SODIUM SERUM 140 mEq/L (136-145)
[2018-03-02] MEDS: Ferrous Sulfate 325 MG TAB PO SCH (08:56)
[2018-03-02] MEDS: Lactobacillus Rhamnosus GG 15 Billion CFU CAP.SPRINK PO SCH (08:56)
[2018-03-02] MEDS: Vitamin A/Vitamin D 5 gm Packet TP SCH ×2 (09:09→16:59)
--- NOTE | 2018-03-02 12:25 | Internal Medicine Prog Note ---
Internal Medicine Subjective - Subjective Service Date: 03/02/18 Patient seen and examined:: with staff Patient is:: awake Per staff patient has:: tolerating meds Internal Medicine Objective - Results Result Diagrams: 03/02/18 06:00 03/02/18 06:00 Recent Labs: Laboratory Last Values WBC 5.2 Th/cmm (4.8-10.8) 03/02/18 06:00 RBC 4.38 Mil/cmm (4.30-5.70) 03/02/18 06:00 Hgb 12.8 gm/dL (12-16) 03/02/18 06:00 Hct 39.0 % (41.0-60) L 03/02/18 06:00 MCV 89.0 fl (80-99) 03/02/18 06:00 MCH 29.2 pg (26.0-30.0) 03/02/18 06:00 MCHC Differential 32.8 pg (28.0-36.0) 03/02/18 06:00 RDW 11.9 % (11.5-20.0) 03/02/18 06:00 Plt Count 242 Th/cmm (150-400) 03/02/18 06:00 MPV 8.3 fl 03/02/18 06:00 Neutrophils % 57.1 % (40.0-80.0) 03/02/18 06:00 Lymphocytes % 26.9 % (20.0-50.0) 03/02/18 06:00 Monocytes % 8.8 % (2.0-10.0) 03/02/18 06:00 Eosinophils % 7.0 % (0.0-5.0) H 03/02/18 06:00 Basophils % 0.2 % (0.0-2.0) 03/02/18 06:00 PT 11.0 SECONDS (9.5-11.5) 02/28/18 10:30 INR 1.06 (0.5-1.4) 02/28/18 10:30 Sodium 140 mEq/L (136-145) 03/02/18 06:00 Potassium 3.7 mEq/L (3.5-5.1) 03/02/18 06:00 Chloride 106 mEq/L (98-107) 03/02/18 06:00 Carbon Dioxide 29.7 mEq/L (21.0-31.0) 03/02/18 06:00 Anion Gap 8.0 (7.0-16.0) 03/02/18 06:00 BUN 17 mg/dL (7-25) 03/02/18 06:00 Creatinine 0.5 mg/dL (0.7-1.3) L 03/02/18 06:00 Est GFR ( Amer) > 60.0 ml/min (>90) 03/02/18 06:00 Est GFR (Non-Af Amer) > 60.0 ml/min 03/02/18 06:00 BUN/Creatinine Ratio 34.0 03/02/18 06:00 Glucose 89 mg/dL (70-105) 03/02/18 06:00 POC Glucose 71 MG/DL (70 - 105) 02/28/18 23:03 Calcium 8.9 mg/dL (8.6-10.3) 03/02/18 06:00 Total Bilirubin 0.3 mg/dL (0.3-1.0) 02/28/18 10:30 AST 15 U/L (13-39) 02/28/18 10:30 ALT 18 U/L (7-52) 02/28/18 10:30 Alkaline Phosphatase 88 U/L (34-104) 02/28/18 10:30 Creatine Kinase 44 U/L (30-223) 02/28/18 10:30 Troponin I 0.01 ng/mL (0.01-0.05) 02/28/18 10:30 B-Natriuretic Peptide 187.0 pg/mL (5.0-100.0) H 02/28/18 10:30 Total Protein 7.3 gm/dL (6.0-8.3) 02/28/18 10:30 Albumin 3.9 gm/dL (4.2-5.5) L 02/28/18 10:30 Globulin 3.4 gm/dL 02/28/18 10:30 Albumin/Globulin Ratio 1.2 (1.0-1.8) 02/28/18 10:30 Triglycerides 107 mg/dL (<150) 02/28/18 10:30 Cholesterol 176 mg/dL (<200) 02/28/18 10:30 LDL Cholesterol Direct 114 mg/dL (75-193) 02/28/18 10:30 HDL Cholesterol 42 mg/dL (23-92) 02/28/18 10:30 Amylase 54 U/L (29-103) 02/28/18 10:30 Lipase 20 U/L (11-82) 02/28/18 10:30 - Physical Exam Vitals and I&O: Vital Signs Temp 96.5 F 03/02/18 12:00 Pulse 61 03/02/18 12:00 Resp 17 03/02/18 12:00 BP 111/57 03/02/18 12:00 Pulse Ox 94 03/02/18 12:00 Intake & Output 03/01/18 03/02/18 03/02/18 18:59 06:59 18:59 Intake Total 1000 Balance 1000 Weight (lbs) 131 lb Intake: Intake, IV Amount 1000 D5-0.45NS 1,000 ml @ 80 1000 mls/hr IV .[id number] [facility] Rx #:[id number] Other: # Voids 2 # Bowel Movements 0 Weight Source Bedscale Active Medications: Current Medications Al Hydrox/Mg Hydrox/Simethicone (Maalox) 30 ml PO Q6HR PRN PRN Reason: Dyspepsia Stop: 04/29/18 19:49 Albuterol Sulfate (Albuterol 2.5mg/3ml Neb Ud) 2.5 mg IH Q2HR PRN PRN Reason: Shortness of Breath or Wheeze Stop: 04/29/18 19:49 Ascorbic Acid (Vitamin C) 500 mg PO BID [facility] Stop: 04/29/18 19:49 Last Admin: 03/02/18 08:56 Dose: 500 mg Bisacodyl (Dulcolax 10 Mg Supp) 10 mg RC DAILY PRN PRN Reason: Constipation Stop: 04/29/18 19:49 Calcium Carbonate (Os-Tangela) 500 mg PO TID [facility] Stop: 04/29/18 19:49 Last Admin: 03/02/18 08:56 Dose: 500 mg Cholecalciferol (Vitamin D3) 1,000 iu PO DAILY [facility] Stop: 04/30/18 08:59 Last Admin: 03/02/18 08:56 Dose: 1,000 iu Docusate Sodium (Colace) 250 mg PO BID [facility] Stop: 04/30/18 08:59 Last Admin: 03/02/18 08:55 Dose: 250 mg Enalapril Maleate (Vasotec) 20 mg PO BID [facility] Stop: 04/30/18 08:59 Last Admin: 03/02/18 08:56 Dose: 20 mg Ferrous Sulfate (Iron) 325 mg PO DAILY [facility] Stop: 04/30/18 08:59 Last Admin: 03/02/18 08:56 Dose: 325 mg Guaifenesin (Robitussin) 100 mg PO Q4H PRN PRN Reason: Cough or Congestion Stop: 04/29/18 19:49 Dextrose/Sodium Chloride (D5-0.45ns) 1,000 mls @ 80 mls/hr IV .[id number] [facility] Stop: 04/29/18 19:49 Last Admin: 03/01/18 17:29 Dose: 80 mls/hr Ipratropium [place] (Atrovent Neb 0.5mg/2.5ml) 0.5 mg IH Q2HR PRN PRN Reason: Shortness of Breath or Wheeze Stop: 04/29/18 19:49 Lactobacillus Rhamnosus (Culturelle 15b) 1 each PO DAILY [facility] Stop: 04/30/18 08:59 Last Admin: 03/02/18 08:56 Dose: 1 each Lorazepam (Ativan) 0.5 mg IV Q4HR PRN; Protocol PRN Reason: Seizure Stop: 04/29/18 19:49 Magnesium Hydroxide (Milk Of Magnesia) 30 ml PO Q3D PRN PRN Reason: Constipation Stop: 04/29/18 19:49 Magnesium Oxide (Mag-Oxide) 400 mg PO DAILY [facility] Stop: 04/30/18 08:59 Last Admin: 03/02/18 08:56 Dose: 400 mg Metoclopramide HCl (Reglan) 5 mg PO BID [facility] Stop: 04/29/18 19:49 Last Admin: 03/02/18 08:56 Dose: 5 mg Ondansetron HCl (Zofran) 4 mg IV Q8H PRN PRN Reason: Nausea / Vomiting Stop: 04/29/18 19:49 Pantoprazole Sodium (Protonix) 40 mg IVP DAILY [facility] Stop: 04/30/18 08:59 Last Admin: 03/02/18 08:55 Dose: 40 mg Sodium Phosphate (Fleet Enema) 135 ml RC DAILY PRN PRN Reason: Constipation Stop: 04/29/18 19:49 Vitamin A (Vitamin A & D) 5 gm TP BID [facility] Stop: 04/30/18 08:59 Last Admin: 03/02/18 09:09 Dose: 5 gm General: weak HEENT: NC/AT, PERRLA Neck: Supple Lungs: CTAB Cardiovascular: RRR, Normal S1, without murmur Abdomen: soft, non-tender, non-distended, positive bowel sound Neurological: unable to follow command - Procedures Procedures: Procedures Procedure Code Date APPLICATION LOWER LEG SPLINT 65070 02/28/05 APPLICATION OF SPLINT 93.54 02/28/05 EGD BIOPSY SINGLE/MULTIPLE 60285 02/28/18 EXCISION OF STOMACH, ENDO, DIAGN [id number] 02/28/18 INSERT PICC CATH 20009 03/08/10 VENOUS CATHETERIZATION NEC 38.93 03/08/10 Internal Medicine Assmt/Plan - Assessment Assessment: hematemesis-resolved possible upper gi bleed-s/p egd-mild reflux esophagitis small hiatal hernia mild protein calorie malnutrition hx cva dyslipidemia gerd seizures dementia cerebral palsy - Plan Plan: monitor h/h continue with PPI gi follow up ivf for hydration continue current plan of care Nutritional Asmnt/Malnutr-PDOC - Dietary Evaluation Malnutrition Findings (Please click <Entered> for more info): Nutritional Asmnt/Malnutrition Start: 03/01/18 10: 57 Text: Status: Complete Freq: Document 03/01/18 10:57 [facility] (Rec[facility] 03[facility]01/18 11:09 [email or web address] Nutritional Asmnt/Malnutrition Patient General Information Nutritional Screening High Risk Consult Diagnosis PNA, GI bleed Pertinent Medical Hx/Surgical Hx PR, cerebral palsy, HTN, chronic constipation Subjective Information Per H&P, pt had blood vomiting x 1 day. EGD and swallow eval was ordered. Consult received for anne score <12. Pt seen lying in bed at time of visit , awake, non verbal noted. Pt kept on NPO for EGD. Swallow eval will wait pt cleared for PO. Current Diet Order/ Nutrition Support NPO Pertinent Medications vit C, os-tangela, vit D3, D5-0. 45ns, colace, iron, culturelle ,mag-oxide, reglan, protonix, vit A&D Pertinent Labs 03/01 K 3.4, Cr 0.5 Nutritional Hx/Data Height 5 ft 7 in Height (Calculated Centimeters) 170.2 Current Weight (lbs) 132 lb Weight (Calculated Kilograms) 59.9 Weight (Calculated Grams) 24542.2 [place] Body Weight 148 Body Mass Index (BMI) 20.7 Weight Status Approriate GI Symptoms GI Symptoms Vomitting Last BM none Skin Integrity/Comment: pressure area to right/left buttocks, right cheek, abrasion to left knee. Current %PO Negligible < 25% Estimated Nutritional Goals BEE in Kcals: Using Current wt Calories/Kcals/Kg 27-32 Kcals Calculated 4313-1449 Protein: Using Current wt Protein g/k.1-1.3 Protein Calculated 66-78 Fluid: ml 1620-1920ml (1ml/kcal) Nutritional Problem 1. Problem Problem inadequate food intake Etiology blood vomiting Signs/Symptoms: pt on NPO for EGD Malnutrition Alert Protein-Calorie Malnutrition N/A Is there a minimum of two criteria No selected? Query Text:Check all the applicable criteria. A minimum of two criteria are recommended for diagnosis of either severe or non-severe malnutrition. Intervention/Recommendation Comments 1. Monitor NPO status. 2. Monitor GI function, wt, labs and skin integrity 3. F/U as high risk in 2 days, 03/03 Expected Outcomes/Goals Expected Outcomes/Goals 1. PO intake to meet at least 75% of nutritional needs. 2. Wt stability, skin to remain intact, labs to approach WNL.
[2018-03-02] MEDS: D5-0.45NS 1,000 ML IV SCH (17:55)
--- NOTE | 2018-03-02 22:31 | GI Progress Note ---
Subjective - Review of Systems Service Date: 03/02/18 Subjective: EVENTS NOTED Objective - Results Result Diagrams: 03/02/18 06:00 03/02/18 06:00 Recent Labs: Laboratory Last Values WBC 5.2 Th/cmm (4.8-10.8) 03/02/18 06:00 RBC 4.38 Mil/cmm (4.30-5.70) 03/02/18 06:00 Hgb 12.8 gm/dL (12-16) 03/02/18 06:00 Hct 39.0 % (41.0-60) L 03/02/18 06:00 MCV 89.0 fl (80-99) 03/02/18 06:00 MCH 29.2 pg (26.0-30.0) 03/02/18 06:00 MCHC Differential 32.8 pg (28.0-36.0) 03/02/18 06:00 RDW 11.9 % (11.5-20.0) 03/02/18 06:00 Plt Count 242 Th/cmm (150-400) 03/02/18 06:00 MPV 8.3 fl 03/02/18 06:00 Neutrophils % 57.1 % (40.0-80.0) 03/02/18 06:00 Lymphocytes % 26.9 % (20.0-50.0) 03/02/18 06:00 Monocytes % 8.8 % (2.0-10.0) 03/02/18 06:00 Eosinophils % 7.0 % (0.0-5.0) H 03/02/18 06:00 Basophils % 0.2 % (0.0-2.0) 03/02/18 06:00 PT 11.0 SECONDS (9.5-11.5) 02/28/18 10:30 INR 1.06 (0.5-1.4) 02/28/18 10:30 Sodium 140 mEq/L (136-145) 03/02/18 06:00 Potassium 3.7 mEq/L (3.5-5.1) 03/02/18 06:00 Chloride 106 mEq/L (98-107) 03/02/18 06:00 Carbon Dioxide 29.7 mEq/L (21.0-31.0) 03/02/18 06:00 Anion Gap 8.0 (7.0-16.0) 03/02/18 06:00 BUN 17 mg/dL (7-25) 03/02/18 06:00 Creatinine 0.5 mg/dL (0.7-1.3) L 03/02/18 06:00 Est GFR ( Amer) > 60.0 ml/min (>90) 03/02/18 06:00 Est GFR (Non-Af Amer) > 60.0 ml/min 03/02/18 06:00 BUN/Creatinine Ratio 34.0 03/02/18 06:00 Glucose 89 mg/dL (70-105) 03/02/18 06:00 POC Glucose 71 MG/DL (70 - 105) 02/28/18 23:03 Calcium 8.9 mg/dL (8.6-10.3) 03/02/18 06:00 Total Bilirubin 0.3 mg/dL (0.3-1.0) 02/28/18 10:30 AST 15 U/L (13-39) 02/28/18 10:30 ALT 18 U/L (7-52) 02/28/18 10:30 Alkaline Phosphatase 88 U/L (34-104) 02/28/18 10:30 Creatine Kinase 44 U/L (30-223) 02/28/18 10:30 Troponin I 0.01 ng/mL (0.01-0.05) 02/28/18 10:30 B-Natriuretic Peptide 187.0 pg/mL (5.0-100.0) H 02/28/18 10:30 Total Protein 7.3 gm/dL (6.0-8.3) 02/28/18 10:30 Albumin 3.9 gm/dL (4.2-5.5) L 02/28/18 10:30 Globulin 3.4 gm/dL 02/28/18 10:30 Albumin/Globulin Ratio 1.2 (1.0-1.8) 02/28/18 10:30 Triglycerides 107 mg/dL (<150) 02/28/18 10:30 Cholesterol 176 mg/dL (<200) 02/28/18 10:30 LDL Cholesterol Direct 114 mg/dL (75-193) 02/28/18 10:30 HDL Cholesterol 42 mg/dL (23-92) 02/28/18 10:30 Amylase 54 U/L (29-103) 02/28/18 10:30 Lipase 20 U/L (11-82) 02/28/18 10:30 Helicobacter pylori Ab NEGATIVE (NEGATIVE) 03/01/18 16:25 - Physical Exam Vitals and I&O: Vital Signs Temp 98 F 03/02/18 20:00 Pulse 86 03/02/18 20:10 Resp 18 03/02/18 20:10 BP 113/51 03/02/18 20:00 Pulse Ox 96 03/02/18 20:10 Intake & Output 03/02/18 03/02/18 03/03/18 06:59 18:59 06:59 Intake Total 1000 130 Balance 1000 130 Weight (lbs) 59.421 kg 58.967 kg Intake: Intake, IV Amount 1000 D5-0.45NS 1,000 ml @ 80 1000 mls/hr IV .[id number] [facility] Rx #:[id number] Oral 130 Other: # Voids 2 3 # Bowel Movements 0 0 Weight Source Bedscale Bedscale Active Medications: Current Medications Al Hydrox/Mg Hydrox/Simethicone (Maalox) 30 ml PO Q6HR PRN PRN Reason: Dyspepsia Stop: 04/29/18 19:49 Albuterol Sulfate (Albuterol 2.5mg/3ml Neb Ud) 2.5 mg IH Q2HR PRN PRN Reason: Shortness of Breath or Wheeze Stop: 04/29/18 19:49 Ascorbic Acid (Vitamin C) 500 mg PO BID [facility] Stop: 04/29/18 19:49 Last Admin: 03/02/18 16:57 Dose: 500 mg Bisacodyl (Dulcolax 10 Mg Supp) 10 mg RC DAILY PRN PRN Reason: Constipation Stop: 04/29/18 19:49 Last Admin: 03/02/18 17:47 Dose: 10 mg Calcium Carbonate (Os-Joesph) 500 mg PO TID [facility] Stop: 04/29/18 19:49 Last Admin: 03/02/18 21:28 Dose: 500 mg Cholecalciferol (Vitamin D3) 1,000 iu PO DAILY [facility] Stop: 04/30/18 08:59 Last Admin: 03/02/18 08:56 Dose: 1,000 iu Docusate Sodium (Colace) 250 mg PO BID [facility] Stop: 04/30/18 08:59 Last Admin: 03/02/18 16:56 Dose: 250 mg Enalapril Maleate (Vasotec) 20 mg PO BID [facility] Stop: 04/30/18 08:59 Last Admin: 03/02/18 16:58 Dose: Not Given Ferrous Sulfate (Iron) 325 mg PO DAILY [facility] Stop: 04/30/18 08:59 Last Admin: 03/02/18 08:56 Dose: 325 mg Guaifenesin (Robitussin) 100 mg PO Q4H PRN PRN Reason: Cough or Congestion Stop: 04/29/18 19:49 Dextrose/Sodium Chloride (D5-0.45ns) 1,000 mls @ 80 mls/hr IV .[id number] [facility] Stop: 04/29/18 19:49 Last Admin: 03/02/18 17:55 Dose: 80 mls/hr Ipratropium [place] (Atrovent Neb 0.5mg/2.5ml) 0.5 mg IH Q2HR PRN PRN Reason: Shortness of Breath or Wheeze Stop: 04/29/18 19:49 Lactobacillus Rhamnosus (Culturelle 15b) 1 each PO DAILY [facility] Stop: 04/30/18 08:59 Last Admin: 03/02/18 08:56 Dose: 1 each Lorazepam (Ativan) 0.5 mg IV Q4HR PRN; Protocol PRN Reason: Seizure Stop: 04/29/18 19:49 Magnesium Hydroxide (Milk Of Magnesia) 30 ml PO Q3D PRN PRN Reason: Constipation Stop: 04/29/18 19:49 Last Admin: 03/02/18 17:18 Dose: 30 ml Magnesium Oxide (Mag-Oxide) 400 mg PO DAILY [facility] Stop: 04/30/18 08:59 Last Admin: 03/02/18 08:56 Dose: 400 mg Metoclopramide HCl (Reglan) 5 mg PO BID [facility] Stop: 04/29/18 19:49 Last Admin: 03/02/18 16:57 Dose: 5 mg Ondansetron HCl (Zofran) 4 mg IV Q8H PRN PRN Reason: Nausea / Vomiting Stop: 04/29/18 19:49 Pantoprazole Sodium (Protonix) 40 mg IVP DAILY [facility] Stop: 04/30/18 08:59 Last Admin: 03/02/18 08:55 Dose: 40 mg Sodium Phosphate (Fleet Enema) 135 ml RC DAILY PRN PRN Reason: Constipation Stop: 04/29/18 19:49 Vitamin A (Vitamin A & D) 5 gm TP BID [facility] Stop: 04/30/18 08:59 Last Admin: 03/02/18 16:59 Dose: 5 gm General: No acute distress Neck: Supple Cardiovascular: Regular rate Lungs: Clear to auscultation Abdomen: Bowel sounds, no Tender, no Distended - Procedures Procedures: Procedures Procedure Code Date APPLICATION LOWER LEG SPLINT 06493 02/28/05 APPLICATION OF SPLINT 93.54 02/28/05 EGD BIOPSY SINGLE/MULTIPLE 20901 02/28/18 EXCISION OF STOMACH, ENDO, DIAGN [id number] 02/28/18 INSERT PICC CATH 09015 03/08/10 VENOUS CATHETERIZATION NEC 38.93 03/08/10 Assessment/Plan - Assessment Assessment: IMPRESSION: 1. UGIB - EGD SHOWED MILD ESOPHAGITIS, H HERNIA, GASTRITIS, GASTRIC POLYPS SAMPLED, AND GASTRIC ANGIODYSPLASIA LEFT ALONE. 2. MILD ANEMIA. RECS: 1. F/U BX RESULTS. 2. PROTONIX. 3. ANTIEMETICS PRN. 4. ORAL DIET NATY.
[2018-03-03 06:45] LABS: % BASOPHILS 0.2 % (0.0-2.0); % EOSINOPHILS 6.5 % (0.0-5.0); % LYMPHOCYTES 23.2 % (20.0-50.0); % MONOCYTES 8.7 % (2.0-10.0); % NEUTROPHILS 61.4 % (40.0-80.0); EOSINOPHILE ABSOLUTE 0.3 Th/cmm (0.1-0.4); HEMOGLOBIN 12.4 gm/dL (12-16); LYMPHOCYTE ABSOLUTE 1.2 Th/cmm (1.5-3.0); MEAN CELL VOLUME 89.2 fl (80-99); MEAN CORPUSCULAR HEMOGLOBIN 29.1 pg (26.0-30.0); MEAN CORPUSCULAR HGB CONC 32.6 pg (28.0-36.0); MEAN PLATELET VOLUME 8.2 fl; MONOCYTE ABSOLUTE 0.5 Th/cmm (0.3-1.0); NEUTROPHILE ABSOLUTE 3.3 Th/cmm (1.8-8.0); PLATELET COUNT 255 Th/cmm (150-400); RED BLOOD COUNT 4.27 Mil/cmm (4.30-5.70); WHITE BLOOD COUNT 5.3 Th/cmm (4.8-10.8)
[2018-03-03 06:48] LABS: ANION GAP 6.8 (7.0-16.0); BUN - UREA NITROGEN 10 mg/dL (7-25); CALCIUM SERUM 8.5 mg/dL (8.6-10.3); CARBON DIOXIDE 28.8 mEq/L (21.0-31.0); CHLORIDE 105 mEq/L (98-107); CREATININE - SERUM 0.4 mg/dL (0.7-1.3); GFR AFRICAN-AMERICAN > 60.0 ml/min (>90); GFR NON AFRICAN-AMERICAN > 60.0 ml/min; GLUCOSE 96 mg/dL (70-105); POTASSIUM SERUM 3.6 mEq/L (3.5-5.1); SODIUM SERUM 137 mEq/L (136-145)
[2018-03-03] MEDS: D5-0.45NS 1,000 ML IV SCH (07:40)
[2018-03-03] MEDS: Ferrous Sulfate 325 MG TAB PO SCH (09:27)
[2018-03-03] MEDS: Lactobacillus Rhamnosus GG 15 Billion CFU CAP.SPRINK PO SCH (09:28)
[2018-03-03] MEDS: Vitamin A/Vitamin D 5 gm Packet TP SCH ×2 (09:44→16:32)
--- NOTE | 2018-03-03 13:37 | Internal Medicine Prog Note ---
Internal Medicine Subjective - Subjective Service Date: 03/03/18 Patient seen and examined:: with staff Patient is:: awake Per staff patient has:: tolerating meds Internal Medicine Objective - Results Result Diagrams: 03/03/18 06:00 03/03/18 06:00 Recent Labs: Laboratory Last Values WBC 5.3 Th/cmm (4.8-10.8) 03/03/18 06:00 RBC 4.27 Mil/cmm (4.30-5.70) L 03/03/18 06:00 Hgb 12.4 gm/dL (12-16) 03/03/18 06:00 Hct 38.0 % (41.0-60) L 03/03/18 06:00 MCV 89.2 fl (80-99) 03/03/18 06:00 MCH 29.1 pg (26.0-30.0) 03/03/18 06:00 MCHC Differential 32.6 pg (28.0-36.0) 03/03/18 06:00 RDW 12.0 % (11.5-20.0) 03/03/18 06:00 Plt Count 255 Th/cmm (150-400) 03/03/18 06:00 MPV 8.2 fl 03/03/18 06:00 Neutrophils % 61.4 % (40.0-80.0) 03/03/18 06:00 Lymphocytes % 23.2 % (20.0-50.0) 03/03/18 06:00 Monocytes % 8.7 % (2.0-10.0) 03/03/18 06:00 Eosinophils % 6.5 % (0.0-5.0) H 03/03/18 06:00 Basophils % 0.2 % (0.0-2.0) 03/03/18 06:00 PT 11.0 SECONDS (9.5-11.5) 02/28/18 10:30 INR 1.06 (0.5-1.4) 02/28/18 10:30 Sodium 137 mEq/L (136-145) 03/03/18 06:00 Potassium 3.6 mEq/L (3.5-5.1) 03/03/18 06:00 Chloride 105 mEq/L (98-107) 03/03/18 06:00 Carbon Dioxide 28.8 mEq/L (21.0-31.0) 03/03/18 06:00 Anion Gap 6.8 (7.0-16.0) L 03/03/18 06:00 BUN 10 mg/dL (7-25) 03/03/18 06:00 Creatinine 0.4 mg/dL (0.7-1.3) L 03/03/18 06:00 Est GFR ( Amer) > 60.0 ml/min (>90) 03/03/18 06:00 Est GFR (Non-Af Amer) > 60.0 ml/min 03/03/18 06:00 BUN/Creatinine Ratio 25.0 03/03/18 06:00 Glucose 96 mg/dL (70-105) 03/03/18 06:00 POC Glucose 71 MG/DL (70 - 105) 02/28/18 23:03 Calcium 8.5 mg/dL (8.6-10.3) L 03/03/18 06:00 Total Bilirubin 0.3 mg/dL (0.3-1.0) 02/28/18 10:30 AST 15 U/L (13-39) 02/28/18 10:30 ALT 18 U/L (7-52) 02/28/18 10:30 Alkaline Phosphatase 88 U/L (34-104) 02/28/18 10:30 Creatine Kinase 44 U/L (30-223) 02/28/18 10:30 Troponin I 0.01 ng/mL (0.01-0.05) 02/28/18 10:30 B-Natriuretic Peptide 187.0 pg/mL (5.0-100.0) H 02/28/18 10:30 Total Protein 7.3 gm/dL (6.0-8.3) 02/28/18 10:30 Albumin 3.9 gm/dL (4.2-5.5) L 02/28/18 10:30 Globulin 3.4 gm/dL 02/28/18 10:30 Albumin/Globulin Ratio 1.2 (1.0-1.8) 02/28/18 10:30 Triglycerides 107 mg/dL (<150) 02/28/18 10:30 Cholesterol 176 mg/dL (<200) 02/28/18 10:30 LDL Cholesterol Direct 114 mg/dL (75-193) 02/28/18 10:30 HDL Cholesterol 42 mg/dL (23-92) 02/28/18 10:30 Amylase 54 U/L (29-103) 02/28/18 10:30 Lipase 20 U/L (11-82) 02/28/18 10:30 Helicobacter pylori Ab NEGATIVE (NEGATIVE) 03/01/18 16:25 - Physical Exam Vitals and I&O: Vital Signs Temp 97.2 F 03/03/18 12:34 Pulse 84 03/03/18 12:34 Resp 18 03/03/18 12:34 BP 123/72 03/03/18 12:34 Pulse Ox 94 03/03/18 12:34 Intake & Output 03/02/18 03/03/18 03/03/18 18:59 06:59 18:59 Intake Total 130 1100 Balance 130 1100 Weight (lbs) 130 lb 141 lb 9.6 oz Intake: Intake, IV Amount 1000 D5-0.45NS 1,000 ml @ 80 1000 mls/hr IV .[id number] [facility] Rx #:[id number] Oral 130 100 Other: # Voids 3 4 # Bowel Movements 0 1 Weight Source Bedscale Bedscale Active Medications: Current Medications Al Hydrox/Mg Hydrox/Simethicone (Maalox) 30 ml PO Q6HR PRN PRN Reason: Dyspepsia Stop: 04/29/18 19:49 Albuterol Sulfate (Albuterol 2.5mg/3ml Neb Ud) 2.5 mg IH Q2HR PRN PRN Reason: Shortness of Breath or Wheeze Stop: 04/29/18 19:49 Last Admin: 03/03/18 08:38 Dose: 2.5 mg Ascorbic Acid (Vitamin C) 500 mg PO BID [facility] Stop: 04/29/18 19:49 Last Admin: 03/03/18 09:27 Dose: 500 mg Bisacodyl (Dulcolax 10 Mg Supp) 10 mg RC DAILY PRN PRN Reason: Constipation Stop: 04/29/18 19:49 Last Admin: 03/02/18 17:47 Dose: 10 mg Calcium Carbonate (Os-Tangela) 500 mg PO TID [facility] Stop: 04/29/18 19:49 Last Admin: 03/03/18 09:27 Dose: 500 mg Cholecalciferol (Vitamin D3) 1,000 iu PO DAILY [facility] Stop: 04/30/18 08:59 Last Admin: 03/03/18 09:28 Dose: 1,000 iu Docusate Sodium (Colace) 250 mg PO BID [facility] Stop: 04/30/18 08:59 Last Admin: 03/03/18 09:27 Dose: 250 mg Enalapril Maleate (Vasotec) 20 mg PO BID [facility] Stop: 04/30/18 08:59 Last Admin: 03/03/18 09:28 Dose: 20 mg Ferrous Sulfate (Iron) 325 mg PO DAILY [facility] Stop: 04/30/18 08:59 Last Admin: 03/03/18 09:27 Dose: 325 mg Guaifenesin (Robitussin) 100 mg PO Q4H PRN PRN Reason: Cough or Congestion Stop: 04/29/18 19:49 Dextrose/Sodium Chloride (D5-0.45ns) 1,000 mls @ 80 mls/hr IV .[id number] [facility] Stop: 04/29/18 19:49 Last Admin: 03/03/18 07:40 Dose: 80 mls/hr Ipratropium [place] (Atrovent Neb 0.5mg/2.5ml) 0.5 mg IH Q2HR PRN PRN Reason: Shortness of Breath or Wheeze Stop: 04/29/18 19:49 Last Admin: 03/03/18 08:38 Dose: 0.5 mg Lactobacillus Rhamnosus (Culturelle 15b) 1 each PO DAILY [facility] Stop: 04/30/18 08:59 Last Admin: 03/03/18 09:28 Dose: 1 each Lorazepam (Ativan) 0.5 mg IV Q4HR PRN; Protocol PRN Reason: Seizure Stop: 04/29/18 19:49 Magnesium Hydroxide (Milk Of Magnesia) 30 ml PO Q3D PRN PRN Reason: Constipation Stop: 04/29/18 19:49 Last Admin: 03/02/18 17:18 Dose: 30 ml Magnesium Oxide (Mag-Oxide) 400 mg PO DAILY PENDING SALE TO [facility] Stop: 04/30/18 08:59 Last Admin: 03/03/18 09:27 Dose: 400 mg Metoclopramide HCl (Reglan) 5 mg PO BID PENDING SALE TO [facility] Stop: 04/29/18 19:49 Last Admin: 03/03/18 09:27 Dose: 5 mg Ondansetron HCl (Zofran) 4 mg IV Q8H PRN PRN Reason: Nausea / Vomiting Stop: 04/29/18 19:49 Pantoprazole Sodium (Protonix) 40 mg IVP DAILY HEIDI Stop: 04/30/18 08:59 Last Admin: 03/03/18 09:28 Dose: 40 mg Sodium Phosphate (Fleet Enema) 135 ml RC DAILY PRN PRN Reason: Constipation Stop: 04/29/18 19:49 Vitamin A (Vitamin A & D) 5 gm TP BID HEIDI Stop: 04/30/18 08:59 Last Admin: 03/03/18 09:44 Dose: 5 gm General: weak HEENT: NC/AT, PERRLA Neck: Supple Lungs: CTAB Cardiovascular: RRR, Normal S1, without murmur Abdomen: soft, non-tender, non-distended, positive bowel sound Neurological: unable to follow command - Procedures Procedures: Procedures Procedure Code Date APPLICATION LOWER LEG SPLINT 66747 02/28/05 APPLICATION OF SPLINT 93.54 02/28/05 EGD BIOPSY SINGLE/MULTIPLE 71802 02/28/18 EXCISION OF STOMACH, ENDO, DIAGN [id number] 02/28/18 INSERT PICC CATH [id number] 03/08/10 VENOUS CATHETERIZATION NEC 38.93 03/08/10 Internal Medicine Assmt/Plan - Assessment Assessment: hematemesis-resolved possible upper gi bleed-s/p egd-mild reflux esophagitis small hiatal hernia mild protein calorie malnutrition hx cva dyslipidemia gerd seizures dementia cerebral palsy - Plan Plan: monitor h/h continue with PPI gi follow up ivf for hydration continue current plan of care Nutritional Asmnt/Malnutr-PDOC - Dietary Evaluation Malnutrition Findings (Please click <Entered> for more info): Nutritional Asmnt/Malnutrition Start: 03/01/18 10: 57 Text: Status: Complete Freq: Document 03/01/18 10:57 ZAHIRA (Rec: 03/01/18 11:09 ZAHIRA [email or web address]) Nutritional Asmnt/Malnutrition Patient General Information Nutritional Screening High Risk Consult Diagnosis PNA, GI bleed Pertinent Medical Hx/Surgical Hx MN, cerebral palsy, HTN, chronic constipation Subjective Information Per H&P, pt had blood vomiting x 1 day. EGD and swallow eval was ordered. Consult received for anne score <12. Pt seen lying in bed at time of visit , awake, non verbal noted. Pt kept on NPO for EGD. Swallow eval will wait pt cleared for PO. Current Diet Order/ Nutrition Support NPO Pertinent Medications vit C, os-tangela, vit D3, D5-0. 45ns, colace, iron, culturelle ,mag-oxide, reglan, protonix, vit A&D Pertinent Labs 03/01 K 3.4, Cr 0.5 Nutritional Hx/Data Height 5 ft 7 in Height (Calculated Centimeters) 170.2 Current Weight (lbs) 132 lb Weight (Calculated Kilograms) 59.9 Weight (Calculated Grams) 37233.2 [place] Body Weight 148 Body Mass Index (BMI) 20.7 Weight Status Approriate GI Symptoms GI Symptoms Vomitting Last BM none Skin Integrity/Comment: pressure area to right/left buttocks, right cheek, abrasion to left knee. Current %PO Negligible < 25% Estimated Nutritional Goals BEE in Kcals: Using Current wt Calories/Kcals/Kg 27-32 Kcals Calculated 5819-4404 Protein: Using Current wt Protein g/k.1-1.3 Protein Calculated 66-78 Fluid: ml 1620-1920ml (1ml/kcal) Nutritional Problem 1. Problem Problem inadequate food intake Etiology blood vomiting Signs/Symptoms: pt on NPO for EGD Malnutrition Alert Protein-Calorie Malnutrition N/A Is there a minimum of two criteria No selected? Query Text:Check all the applicable criteria. A minimum of two criteria are recommended for diagnosis of either severe or non-severe malnutrition. Intervention/Recommendation Comments 1. Monitor NPO status. 2. Monitor GI function, wt, labs and skin integrity 3. F/U as high risk in 2 days, 03/03 Expected Outcomes/Goals Expected Outcomes/Goals 1. PO intake to meet at least 75% of nutritional needs. 2. Wt stability, skin to remain intact, labs to approach WNL.
--- NOTE | 2018-03-03 15:25 | Pathology Report ---
[id number] Collection Date: 03/01/2018 Surgeon: Dr. Solomon Moore Specimen Description: Gastric polyp Gross Description: Received in formalin are three us soft tissue fragments, each measuring 0.1 cm in greatest dimension. Totally submitted in one cassette. Microscopic Description: The histologic sections show gastric mucosa with several cystically dilated benign gastric glands, consistent with benign hyperplastic gastric polyp. The Giemsa stain shows no evidence for Helicobacter pylori. Diagnosis: 1. Benign hyperplastic gastric polyp, gastric biopsy. 2. The Giemsa stain is negative for Helicobacter pylori. [facility]# [id number]
--- NOTE | 2018-03-03 22:45 | GI Progress Note ---
Subjective - Review of Systems Service Date: 03/03/18 Subjective: EVENTS NOTED Objective - Results Result Diagrams: 03/03/18 06:00 03/03/18 06:00 Recent Labs: Laboratory Last Values WBC 5.3 Th/cmm (4.8-10.8) 03/03/18 06:00 RBC 4.27 Mil/cmm (4.30-5.70) L 03/03/18 06:00 Hgb 12.4 gm/dL (12-16) 03/03/18 06:00 Hct 38.0 % (41.0-60) L 03/03/18 06:00 MCV 89.2 fl (80-99) 03/03/18 06:00 MCH 29.1 pg (26.0-30.0) 03/03/18 06:00 MCHC Differential 32.6 pg (28.0-36.0) 03/03/18 06:00 RDW 12.0 % (11.5-20.0) 03/03/18 06:00 Plt Count 255 Th/cmm (150-400) 03/03/18 06:00 MPV 8.2 fl 03/03/18 06:00 Neutrophils % 61.4 % (40.0-80.0) 03/03/18 06:00 Lymphocytes % 23.2 % (20.0-50.0) 03/03/18 06:00 Monocytes % 8.7 % (2.0-10.0) 03/03/18 06:00 Eosinophils % 6.5 % (0.0-5.0) H 03/03/18 06:00 Basophils % 0.2 % (0.0-2.0) 03/03/18 06:00 PT 11.0 SECONDS (9.5-11.5) 02/28/18 10:30 INR 1.06 (0.5-1.4) 02/28/18 10:30 Sodium 137 mEq/L (136-145) 03/03/18 06:00 Potassium 3.6 mEq/L (3.5-5.1) 03/03/18 06:00 Chloride 105 mEq/L (98-107) 03/03/18 06:00 Carbon Dioxide 28.8 mEq/L (21.0-31.0) 03/03/18 06:00 Anion Gap 6.8 (7.0-16.0) L 03/03/18 06:00 BUN 10 mg/dL (7-25) 03/03/18 06:00 Creatinine 0.4 mg/dL (0.7-1.3) L 03/03/18 06:00 Est GFR ( Amer) > 60.0 ml/min (>90) 03/03/18 06:00 Est GFR (Non-Af Amer) > 60.0 ml/min 03/03/18 06:00 BUN/Creatinine Ratio 25.0 03/03/18 06:00 Glucose 96 mg/dL (70-105) 03/03/18 06:00 POC Glucose 71 MG/DL (70 - 105) 02/28/18 23:03 Calcium 8.5 mg/dL (8.6-10.3) L 03/03/18 06:00 Total Bilirubin 0.3 mg/dL (0.3-1.0) 02/28/18 10:30 AST 15 U/L (13-39) 02/28/18 10:30 ALT 18 U/L (7-52) 02/28/18 10:30 Alkaline Phosphatase 88 U/L (34-104) 02/28/18 10:30 Creatine Kinase 44 U/L (30-223) 02/28/18 10:30 Troponin I 0.01 ng/mL (0.01-0.05) 02/28/18 10:30 B-Natriuretic Peptide 187.0 pg/mL (5.0-100.0) H 02/28/18 10:30 Total Protein 7.3 gm/dL (6.0-8.3) 02/28/18 10:30 Albumin 3.9 gm/dL (4.2-5.5) L 02/28/18 10:30 Globulin 3.4 gm/dL 02/28/18 10:30 Albumin/Globulin Ratio 1.2 (1.0-1.8) 02/28/18 10:30 Triglycerides 107 mg/dL (<150) 02/28/18 10:30 Cholesterol 176 mg/dL (<200) 02/28/18 10:30 LDL Cholesterol Direct 114 mg/dL (75-193) 02/28/18 10:30 HDL Cholesterol 42 mg/dL (23-92) 02/28/18 10:30 Amylase 54 U/L (29-103) 02/28/18 10:30 Lipase 20 U/L (11-82) 02/28/18 10:30 Helicobacter pylori Ab NEGATIVE (NEGATIVE) 03/01/18 16:25 - Physical Exam Vitals and I&O: Vital Signs Temp 97.3 F 03/03/18 20:00 Pulse 90 03/03/18 22:28 Resp 20 03/03/18 22:28 BP 125/70 03/03/18 20:00 Pulse Ox 93 03/03/18 22:28 Intake & Output 03/03/18 03/03/18 03/04/18 06:59 18:59 06:59 Intake Total 1100 500 Balance 1100 500 Weight (lbs) 64.229 kg 64.229 kg Intake: Intake, IV Amount 1000 D5-0.45NS 1,000 ml @ 80 1000 mls/hr IV .[id number] [facility] Rx #:[id number] Oral 100 500 Other: # Voids 4 3 # Bowel Movements 1 1 Weight Source Bedscale Bedscale Active Medications: Current Medications Al Hydrox/Mg Hydrox/Simethicone (Maalox) 30 ml PO Q6HR PRN PRN Reason: Dyspepsia Stop: 04/29/18 19:49 Albuterol Sulfate (Albuterol 2.5mg/3ml Neb Ud) 2.5 mg IH Q2HR PRN PRN Reason: Shortness of Breath or Wheeze Stop: 04/29/18 19:49 Last Admin: 03/03/18 08:38 Dose: 2.5 mg Ascorbic Acid (Vitamin C) 500 mg PO BID [facility] Stop: 04/29/18 19:49 Last Admin: 03/03/18 16:32 Dose: 500 mg Bisacodyl (Dulcolax 10 Mg Supp) 10 mg RC DAILY PRN PRN Reason: Constipation Stop: 04/29/18 19:49 Last Admin: 03/02/18 17:47 Dose: 10 mg Calcium Carbonate (Os-Joesph) 500 mg PO TID [facility] Stop: 04/29/18 19:49 Last Admin: 03/03/18 14:40 Dose: 500 mg Cholecalciferol (Vitamin D3) 1,000 iu PO DAILY [facility] Stop: 04/30/18 08:59 Last Admin: 03/03/18 09:28 Dose: 1,000 iu Docusate Sodium (Colace) 250 mg PO BID [facility] Stop: 04/30/18 08:59 Last Admin: 03/03/18 16:25 Dose: 250 mg Enalapril Maleate (Vasotec) 20 mg PO BID [facility] Stop: 04/30/18 08:59 Last Admin: 03/03/18 16:33 Dose: 20 mg Ferrous Sulfate (Iron) 325 mg PO DAILY [facility] Stop: 04/30/18 08:59 Last Admin: 03/03/18 09:27 Dose: 325 mg Guaifenesin (Robitussin) 100 mg PO Q4H PRN PRN Reason: Cough or Congestion Stop: 04/29/18 19:49 Dextrose/Sodium Chloride (D5-0.45ns) 1,000 mls @ 80 mls/hr IV .[id number] [facility] Stop: 04/29/18 19:49 Last Admin: 03/03/18 07:40 Dose: 80 mls/hr Ipratropium [place] (Atrovent Neb 0.5mg/2.5ml) 0.5 mg IH Q2HR PRN PRN Reason: Shortness of Breath or Wheeze Stop: 04/29/18 19:49 Last Admin: 03/03/18 08:38 Dose: 0.5 mg Lactobacillus Rhamnosus (Culturelle 15b) 1 each PO DAILY [facility] Stop: 04/30/18 08:59 Last Admin: 03/03/18 09:28 Dose: 1 each Lorazepam (Ativan) 0.5 mg IV Q4HR PRN; Protocol PRN Reason: Seizure Stop: 04/29/18 19:49 Magnesium Hydroxide (Milk Of Magnesia) 30 ml PO Q3D PRN PRN Reason: Constipation Stop: 04/29/18 19:49 Last Admin: 03/02/18 17:18 Dose: 30 ml Magnesium Oxide (Mag-Oxide) 400 mg PO DAILY [facility] Stop: 04/30/18 08:59 Last Admin: 03/03/18 09:27 Dose: 400 mg Metoclopramide HCl (Reglan) 5 mg PO BID [facility] Stop: 04/29/18 19:49 Last Admin: 03/03/18 16:31 Dose: 5 mg Ondansetron HCl (Zofran) 4 mg IV Q8H PRN PRN Reason: Nausea / Vomiting Stop: 04/29/18 19:49 Pantoprazole Sodium (Protonix) 40 mg IVP DAILY [facility] Stop: 04/30/18 08:59 Last Admin: 03/03/18 09:28 Dose: 40 mg Sodium Phosphate (Fleet Enema) 135 ml RC DAILY PRN PRN Reason: Constipation Stop: 04/29/18 19:49 Vitamin A (Vitamin A & D) 5 gm TP BID [facility] Stop: 04/30/18 08:59 Last Admin: 03/03/18 16:32 Dose: 5 gm General: No acute distress Neck: Supple Cardiovascular: Regular rate Lungs: Clear to auscultation Abdomen: Bowel sounds, no Tender, no Distended - Procedures Procedures: Procedures Procedure Code Date APPLICATION LOWER LEG SPLINT 79048 02/28/05 APPLICATION OF SPLINT 93.54 02/28/05 EGD BIOPSY SINGLE/MULTIPLE 77279 02/28/18 EXCISION OF STOMACH, ENDO, DIAGN [id number] 02/28/18 INSERT PICC CATH [id number] 03/08/10 VENOUS CATHETERIZATION NEC 38.93 03/08/10 Assessment/Plan - Assessment Assessment: IMPRESSION: 1. UGIB - EGD SHOWED MILD ESOPHAGITIS, H HERNIA, GASTRITIS, GASTRIC POLYPS SAMPLED, AND GASTRIC ANGIODYSPLASIA LEFT ALONE. H PYLORI NEG. 2. MILD ANEMIA. 3. CHOLELITHIASIS. HIDA NEG. RECS: 1. F/U BX RESULTS. 2. PROTONIX. 3. ANTIEMETICS PRN. 4. ORAL DIET NATY.
[2018-03-04] MEDS: D5-0.45NS 1,000 ML IV SCH ×2 (04:05→09:21)
[2018-03-04 06:23] LABS: % BASOPHILS 0.1 % (0.0-2.0); % EOSINOPHILS 7.2 % (0.0-5.0); % LYMPHOCYTES 22.2 % (20.0-50.0); % MONOCYTES 9.1 % (2.0-10.0); % NEUTROPHILS 61.4 % (40.0-80.0); EOSINOPHILE ABSOLUTE 0.4 Th/cmm (0.1-0.4); HEMATOCRIT 38.2 % (41.0-60); HEMOGLOBIN 12.8 gm/dL (12-16); LYMPHOCYTE ABSOLUTE 1.2 Th/cmm (1.5-3.0); MEAN CELL VOLUME 88.9 fl (80-99); MEAN CORPUSCULAR HEMOGLOBIN 29.7 pg (26.0-30.0); MEAN CORPUSCULAR HGB CONC 33.5 pg (28.0-36.0); MONOCYTE ABSOLUTE 0.5 Th/cmm (0.3-1.0); NEUTROPHILE ABSOLUTE 3.4 Th/cmm (1.8-8.0); PLATELET COUNT 276 Th/cmm (150-400); RED BLOOD COUNT 4.29 Mil/cmm (4.30-5.70); RED CELL DISTRIBUTION WIDTH 12.1 % (11.5-20.0); WHITE BLOOD COUNT 5.5 Th/cmm (4.8-10.8)
[2018-03-04 06:32] LABS: ANION GAP 7.9 (7.0-16.0); BUN - UREA NITROGEN 6 mg/dL (7-25); CALCIUM SERUM 8.8 mg/dL (8.6-10.3); CARBON DIOXIDE 29.7 mEq/L (21.0-31.0); CHLORIDE 104 mEq/L (98-107); CREATININE - SERUM 0.5 mg/dL (0.7-1.3); GFR AFRICAN-AMERICAN > 60.0 ml/min (>90); GFR NON AFRICAN-AMERICAN > 60.0 ml/min; GLUCOSE 99 mg/dL (70-105); POTASSIUM SERUM 3.6 mEq/L (3.5-5.1); SODIUM SERUM 138 mEq/L (136-145)
[2018-03-04] MEDS: Ferrous Sulfate 325 MG TAB PO SCH (09:20)
[2018-03-04] MEDS: Lactobacillus Rhamnosus GG 15 Billion CFU CAP.SPRINK PO SCH (09:20)
[2018-03-04] MEDS: Vitamin A/Vitamin D 5 gm Packet TP SCH (09:20)
--- NOTE | 2018-03-04 14:39 | GI Progress Note ---
Subjective - Review of Systems Service Date: 03/04/18 Subjective: EVENTS NOTED NATY ORAL DIET. Objective - Results Result Diagrams: 03/04/18 05:49 03/04/18 05:49 Recent Labs: Laboratory Last Values WBC 5.5 Th/cmm (4.8-10.8) 03/04/18 05:49 RBC 4.29 Mil/cmm (4.30-5.70) L 03/04/18 05:49 Hgb 12.8 gm/dL (12-16) 03/04/18 05:49 Hct 38.2 % (41.0-60) L 03/04/18 05:49 MCV 88.9 fl (80-99) 03/04/18 05:49 MCH 29.7 pg (26.0-30.0) 03/04/18 05:49 MCHC Differential 33.5 pg (28.0-36.0) 03/04/18 05:49 RDW 12.1 % (11.5-20.0) 03/04/18 05:49 Plt Count 276 Th/cmm (150-400) 03/04/18 05:49 MPV 8.0 fl 03/04/18 05:49 Neutrophils % 61.4 % (40.0-80.0) 03/04/18 05:49 Lymphocytes % 22.2 % (20.0-50.0) 03/04/18 05:49 Monocytes % 9.1 % (2.0-10.0) 03/04/18 05:49 Eosinophils % 7.2 % (0.0-5.0) H 03/04/18 05:49 Basophils % 0.1 % (0.0-2.0) 03/04/18 05:49 PT 11.0 SECONDS (9.5-11.5) 02/28/18 10:30 INR 1.06 (0.5-1.4) 02/28/18 10:30 Sodium 138 mEq/L (136-145) 03/04/18 05:49 Potassium 3.6 mEq/L (3.5-5.1) 03/04/18 05:49 Chloride 104 mEq/L (98-107) 03/04/18 05:49 Carbon Dioxide 29.7 mEq/L (21.0-31.0) 03/04/18 05:49 Anion Gap 7.9 (7.0-16.0) 03/04/18 05:49 BUN 6 mg/dL (7-25) L 03/04/18 05:49 Creatinine 0.5 mg/dL (0.7-1.3) L 03/04/18 05:49 Est GFR ( Amer) > 60.0 ml/min (>90) 03/04/18 05:49 Est GFR (Non-Af Amer) > 60.0 ml/min 03/04/18 05:49 BUN/Creatinine Ratio 12.0 03/04/18 05:49 Glucose 99 mg/dL (70-105) 03/04/18 05:49 POC Glucose 71 MG/DL (70 - 105) 02/28/18 23:03 Calcium 8.8 mg/dL (8.6-10.3) 03/04/18 05:49 Total Bilirubin 0.3 mg/dL (0.3-1.0) 02/28/18 10:30 AST 15 U/L (13-39) 02/28/18 10:30 ALT 18 U/L (7-52) 02/28/18 10:30 Alkaline Phosphatase 88 U/L (34-104) 02/28/18 10:30 Creatine Kinase 44 U/L (30-223) 02/28/18 10:30 Troponin I 0.01 ng/mL (0.01-0.05) 02/28/18 10:30 B-Natriuretic Peptide 187.0 pg/mL (5.0-100.0) H 02/28/18 10:30 Total Protein 7.3 gm/dL (6.0-8.3) 02/28/18 10:30 Albumin 3.9 gm/dL (4.2-5.5) L 02/28/18 10:30 Globulin 3.4 gm/dL 02/28/18 10:30 Albumin/Globulin Ratio 1.2 (1.0-1.8) 02/28/18 10:30 Triglycerides 107 mg/dL (<150) 02/28/18 10:30 Cholesterol 176 mg/dL (<200) 02/28/18 10:30 LDL Cholesterol Direct 114 mg/dL (75-193) 02/28/18 10:30 HDL Cholesterol 42 mg/dL (23-92) 02/28/18 10:30 Amylase 54 U/L (29-103) 02/28/18 10:30 Lipase 20 U/L (11-82) 02/28/18 10:30 Helicobacter pylori Ab NEGATIVE (NEGATIVE) 03/01/18 16:25 - Physical Exam Vitals and I&O: Vital Signs Temp 97.9 F 03/04/18 08:00 Pulse 68 03/04/18 09:21 Resp 20 03/04/18 12:00 BP 114/55 03/04/18 09:21 Pulse Ox 98 03/04/18 08:00 Intake & Output 03/03/18 03/04/18 03/04/18 18:59 06:59 18:59 Intake Total 500 1000 421.333 Balance 500 1000 421.333 Weight (lbs) 64.229 kg 66.996 kg Intake: Intake, IV Amount 1000 421.333 D5-0.45NS 1,000 ml @ 80 1000 421.333 mls/hr IV .[id number] [facility] Rx #:[id number] Oral 500 Other: # Voids 3 # Bowel Movements 1 Weight Source Bedscale Bedscale Active Medications: Current Medications Al Hydrox/Mg Hydrox/Simethicone (Maalox) 30 ml PO Q6HR PRN PRN Reason: Dyspepsia Stop: 04/29/18 19:49 Albuterol Sulfate (Albuterol 2.5mg/3ml Neb Ud) 2.5 mg IH Q2HR PRN PRN Reason: Shortness of Breath or Wheeze Stop: 04/29/18 19:49 Last Admin: 03/03/18 08:38 Dose: 2.5 mg Ascorbic Acid (Vitamin C) 500 mg PO BID [facility] Stop: 04/29/18 19:49 Last Admin: 03/04/18 09:20 Dose: 500 mg Bisacodyl (Dulcolax 10 Mg Supp) 10 mg RC DAILY PRN PRN Reason: Constipation Stop: 04/29/18 19:49 Last Admin: 03/02/18 17:47 Dose: 10 mg Calcium Carbonate (Os-Joesph) 500 mg PO TID [facility] Stop: 04/29/18 19:49 Last Admin: 03/04/18 09:20 Dose: 500 mg Cholecalciferol (Vitamin D3) 1,000 iu PO DAILY [facility] Stop: 04/30/18 08:59 Last Admin: 03/04/18 09:20 Dose: 1,000 iu Docusate Sodium (Colace) 250 mg PO BID [facility] Stop: 04/30/18 08:59 Last Admin: 03/04/18 09:20 Dose: 250 mg Enalapril Maleate (Vasotec) 20 mg PO BID [facility] Stop: 04/30/18 08:59 Last Admin: 03/04/18 09:21 Dose: 20 mg Ferrous Sulfate (Iron) 325 mg PO DAILY [facility] Stop: 04/30/18 08:59 Last Admin: 03/04/18 09:20 Dose: 325 mg Guaifenesin (Robitussin) 100 mg PO Q4H PRN PRN Reason: Cough or Congestion Stop: 04/29/18 19:49 Ipratropium [place] (Atrovent Neb 0.5mg/2.5ml) 0.5 mg IH Q2HR PRN PRN Reason: Shortness of Breath or Wheeze Stop: 04/29/18 19:49 Last Admin: 03/03/18 08:38 Dose: 0.5 mg Lactobacillus Rhamnosus (Culturelle 15b) 1 each PO DAILY [facility] Stop: 04/30/18 08:59 Last Admin: 03/04/18 09:20 Dose: 1 each Lorazepam (Ativan) 0.5 mg IV Q4HR PRN; Protocol PRN Reason: Seizure Stop: 04/29/18 19:49 Magnesium Hydroxide (Milk Of Magnesia) 30 ml PO Q3D PRN PRN Reason: Constipation Stop: 04/29/18 19:49 Last Admin: 03/02/18 17:18 Dose: 30 ml Magnesium Oxide (Mag-Oxide) 400 mg PO DAILY [facility] Stop: 04/30/18 08:59 Last Admin: 03/04/18 09:20 Dose: 400 mg Metoclopramide HCl (Reglan) 5 mg PO BID [facility] Stop: 04/29/18 19:49 Last Admin: 03/04/18 09:20 Dose: 5 mg Ondansetron HCl (Zofran) 4 mg IV Q8H PRN PRN Reason: Nausea / Vomiting Stop: 04/29/18 19:49 Pantoprazole Sodium (Protonix) 40 mg PO BIDAC [facility] Stop: 05/03/18 16:29 Sodium Phosphate (Fleet Enema) 135 ml RC DAILY PRN PRN Reason: Constipation Stop: 04/29/18 19:49 Vitamin A (Vitamin A & D) 5 gm TP BID [facility] Stop: 04/30/18 08:59 Last Admin: 03/04/18 09:20 Dose: 5 gm General: No acute distress Neck: Supple Cardiovascular: Regular rate Lungs: Clear to auscultation Abdomen: Bowel sounds, no Tender, no Distended - Procedures Procedures: Procedures Procedure Code Date APPLICATION LOWER LEG SPLINT 33819 02/28/05 APPLICATION OF SPLINT 93.54 02/28/05 EGD BIOPSY SINGLE/MULTIPLE 36699 02/28/18 EXCISION OF STOMACH, ENDO, DIAGN [id number] 02/28/18 INSERT PICC CATH [id number] 03/08/10 VENOUS CATHETERIZATION NEC 38.93 03/08/10 Assessment/Plan - Assessment Assessment: IMPRESSION: 1. UGIB - EGD SHOWED MILD ESOPHAGITIS, H HERNIA, GASTRITIS, GASTRIC POLYPS SAMPLED, AND GASTRIC ANGIODYSPLASIA LEFT ALONE. H PYLORI NEG. 2. MILD ANEMIA. 3. CHOLELITHIASIS. HIDA NEG. RECS: 1. F/U BX RESULTS. 2. PROTONIX. 3. ANTIEMETICS PRN. 4. ORAL DIET NATY. 5. CONSIDER LAP UJAN IF GALLSTONES BECOME SYMPTOMATIC IN THE FUTURE.
--- NOTE | 2018-03-04 16:19 | Discharge Summary ---
DATE OF DISCHARGE: 03/04/2018 CHIEF COMPLAINT: Vomiting blood. FINAL DIAGNOSIS: Severe esophagitis, gastritis, upper GI bleeding, hiatal hernia, mental retardation, cerebral palsy, protein calorie malnutrition, history of stroke, seizure, and gastroesophageal reflux disease. INDICATIONS: This is a 52-year-old male with multiple medical problems previously with UTI, was readmitted secondary to vomiting blood. The patient admitted for further management. PHYSICAL EXAMINATION: VITAL SIGNS: Blood pressure 139/46, respirations 17, pulse 65, ____. GENERAL: Elderly male, appears stated age, chronically ill. NECK: Supple. No mass. LUNGS: Equal breath sounds, few rhonchi. HEART: Regular rhythm without appreciable murmurs. ABDOMEN: Soft, globular. EXTREMITIES: No clubbing, cyanosis, positive contractures. HOSPITAL COURSE: The patient admitted to telemetry, given IV hydration, IV proton pump inhibitor ____. The patient had an endoscopy and showed gastritis and esophagitis. The patient is cleared for discharge. CONDITION ON DISCHARGE: Fair. DISCHARGE INSTRUCTIONS: The patient to continue current management. The patient to be referred for future followup. JOB# [id number]
[2018-03-04] MEDS ORDERED: Pantoprazole 40 mg EC Tab PO SCH (16:30)
== END 2018-03-04 16:30 | DRG 871 ==
LOC: ER 09:48 → TELE 16:06
PROVIDERS: ADMIT Internal Medicine; ATTEND Internal Medicine
PROC: 0DB68ZX Excision of Stomach, Via Natural or Artificial Opening Endoscopic, Diagnostic (ICD-10-PCS; principal; 2018-03-01)
DX: A41.9 Sepsis, unspecified organism (principal); K29.71 Gastritis, unspecified, with bleeding; R53.2 Functional quadriplegia; J69.0 Pneumonitis due to inhalation of food and vomit; K55.21 Angiodysplasia of colon with hemorrhage; E44.1 Mild protein-calorie malnutrition; E78.5 Hyperlipidemia, unspecified; K21.0 Gastro-esophageal reflux disease with esophagitis; G40.909 Epilepsy, unspecified, not intractable, without status epilepticus; K31.7 Polyp of stomach and duodenum; F03.90 Unspecified dementia, unspecified severity, without behavioral disturbance, psychotic disturbance, mood disturbance, and anxiety; G80.9 Cerebral palsy, unspecified; K80.20 Calculus of gallbladder without cholecystitis without obstruction; I11.0 Hypertensive heart disease with heart failure; D64.9 Anemia, unspecified; I50.9 Heart failure, unspecified; F79 Unspecified intellectual disabilities; I34.0 Nonrheumatic mitral (valve) insufficiency; K44.9 Diaphragmatic hernia without obstruction or gangrene; K59.09 Other constipation; Z91.030 Bee allergy status; Z86.73 Personal history of transient ischemic attack (TIA), and cerebral infarction without residual deficits; Z82.49 Family history of ischemic heart disease and other diseases of the circulatory system; Z83.3 Family history of diabetes mellitus; Z87.440 Personal history of urinary (tract) infections; Z79.899 Other long term (current) drug therapy; Z68.23 Body mass index [BMI] 23.0-23.9, adult
CPT/HCPCS: 36415-UA; 71045-TC; 76700-TC; 78226-TC; 80048-TC; 80053-TC; 80061-TC; 82150-TC; 82550-TC; 82948-90; 83690-TC; 83880-TC; 84484-TC; 85025-TC; 85610-TC; 87338-TC; 90779; 93005; 94760; 96375; A9537; C9113; J1956; J2405; J2704; J7030; J7613; X3401; Z7610